=== PATIENT | male | born 1960 | race Caucasian/White ===

== ENCOUNTER 2021-02-18 12:35 | Outpatient (CLI) | payer MEDICARE, SELFPAY | END 2021-02-18 12:36 | disposition home or self-care (01) | LOC: ANHAUDIO 12:38 | PROVIDERS: PCP Student in an Organized Health Care Education/Training Program; Visit Provider Student in an Organized Health Care Education/Training Program | DX: H90.3 Sensorineural hearing loss, bilateral (principal) | CPT/HCPCS: 92557; 92567 ==

== ENCOUNTER 2021-06-19 09:33 | Outpatient (CLI) | payer MEDICARE, SELFPAY ==
--- NOTE | ~2021-06-19 | MR_ITS ---
EXAMINATION: MR lumbar spine wo con DATE: 06/19/2021 10:23 INDICATION: Low back pain TECHNIQUE: Magnetic resonance imaging (MRI) of the lumbar spine was performed without intravenous con trast. Sequences included sagittal T2-weighted FSE, sagittal T2-weighted FS FSE, sagittal T1-weighted FSE, and axial T2-weighted FSE. COMPARISON: 01/08/2017 FINDINGS: Alignment is normal. Unchanged 20% anterior vertebral body height loss at L1 and 20% anterior and gloria tral vertebral body height loss at L2. Small Schmorl's node along the inferior endplate of T12. Large T1 hyperintense L3 hemangioma. Marrow signal is otherwise normal. The discs are normal with normal h eight and signal. 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 The conus medullaris terminates at L1. There is normal signal in the caudal spinal cord. Unchanged small region of scarring the subcutaneous tissues posterior to the L2-L3 interspinous space likely related to a p rior intrathecal pain pump. Paravertebral soft tissues are otherwise unremarkable. The following disc levels are specifically discussed: T12-L1: Small left subarticular zone disc protrusion. There is mild bilateral facet joint osteoarthri tis. There is minimal bilateral neural foraminal stenosis. There is no central canal stenosis. L1-L2: The disc does not extend beyond the endplate margin. There is hypertrophy of the ligamentum fl avum. There is mild bilateral facet joint osteoarthritis. There is moderate left and mild to moderate right neural foraminal stenosis. There is mild central canal stenosis. L2-L3: The disc does not extend beyond the endplate margin. There is hypertrophy of the ligamentum fl avum. There is mild to moderate bilateral facet joint osteoarthritis. There is moderate left and mild to moderate right neural foraminal stenosis. There is mild to moderate central canal stenosis. L3-L4: Disc is mildly bulging. There is hypertrophy of the ligamentum flavum. There is mild to modera te bilateral facet joint osteoarthritis. There is moderate bilateral neural foraminal stenosis. There is moderate central canal stenosis. L4-L5: Disc is mildly bulging. There is hypertrophy of the ligamentum flavum. There is mild to modera te bilateral facet joint osteoarthritis. There is moderate bilateral neural foraminal stenosis. There is mild central canal stenosis. L5-S1: Disc is mildly bulging. There is mild to moderate bilateral facet joint osteoarthritis. There is mild right and mild to moderate left neural foraminal stenosis. There is mild central canal stenos is. IMPRESSION: 1. 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 2. Unchanged chronic mild L1 and L2 compression fractures. Reviewed, dictated and finalized at location A. N AND REGIONAL PLANNER IMPRESSION: 1. No significant interval change in mild to moderate lumbar spondylosis superi mposed over congenitally cysts all mid lumbar central canal. 2. Unchanged chronic mild L1 and L2 compression fractures.
== END 2021-06-19 09:34 ==
LOC: MICIMG 09:34
PROVIDERS: PCP Student in an Organized Health Care Education/Training Program; Visit Provider Nurse Practitioner Family
DX: M54.59 Other low back pain (principal); M47.816 Spondylosis without myelopathy or radiculopathy, lumbar region; G96.198 Other disorders of meninges, not elsewhere classified; M48.56XA Collapsed vertebra, not elsewhere classified, lumbar region, initial encounter for fracture
CPT/HCPCS: 72148

== ENCOUNTER 2021-09-06 11:39 | Emergency (ER) | payer MEDICARE, SELFPAY ==
--- NOTE | ~2021-09-06 | CT_ITS ---
EXAMINATION: CT abdomen pelvis wo con EXAM DATE: 09/06/2021 12:37 INDICATION: Right flank pain . Nausea and vomiting. TECHNIQUE: Spiral CT of the abdomen and pelvis was performed without contrast. Axial, coronal and sag ittal images were reviewed. The dose-length product (DLP) for this examination was 323.95 mGy-cm. T he exposure was tailored according to patient size (auto mA exposure control), and iterative reconstr uction (ASIR) was used as additional dose reduction technique. Comparison is made to prior examinatio n from 03/10/2015. FINDINGS: There is a 5 mm calcification appears to be in the distal aspect of the left ureter, 1 cm f rom the ureterovesicular junction, however there is no hydronephrosis at present. No calyceal stones. The prostate is unremarkable. The bladder is unremarkable. The liver, spleen, adrenal glands and pancreas are unremarkable. Gallbladder is unremarkable. No biliary obstruction. There is no retrop eritoneal or pelvic lymphadenopathy. There is mild scattered arteriosclerotic disease. The appendix is not positively visualized. There is no pericecal inflammatory change to suggest appe ndicitis. There are surgical changes from intact gastric bypass surgery. There is expected amount of colonic stool. No free intraperitoneal gas. The heart is normal in size. There are no pericar dial or pleural effusions. The lung bases are unremarkable. There are no osteoblastic or osteolytic lesions identified. Chronic mild to moderate compression fracture of L2 and mild at L1. There is a p ain management catheter and pump pack. IMPRESSION: 1. Pelvic calcification likely 5 mm left distal ureteral stone, but no hydronephrosis at present. Re portedly patient has contralateral pain. Recommend baseline KUB. 2. Gastric bypass. Reviewed, dictated and finalized at location B. TMENT MAINTENANCE TECHNICIAN IMPRESSION: 1. Pelvic calcification likely 5 mm left distal ureteral stone, but no hydrone phrosis at present. Reportedly patient has contralateral pain. Recommend baseli ne KUB. 2. Gastric bypass.
[2021-09-06 11:43] VITALS: BP 193/99; PULSE 60; RESP 20; TEMP 36.9; O2SAT 100
--- NOTE | 2021-09-06 12:02 | PC.NURSE ---
c/o low back pain and right flank pain. Pt reports chronic low back pain and wears a morphine pain pump. Reports this pain started yesterday. No N/V does reports some diarrhea. Denies any pain with urination
[2021-09-06 12:04] LABS: Basophils Percent Auto 0.3 % (0.2-1.2); Eosinophils Percent Auto 0.2 % (0-4.4); Hematocrit 43.8 % (42.0-52.0); Immature Granulocyte Absolute 0.04 K/mm3 (0.00-0.031); Immature Granulocyte Percent A 0.4 % (0-0.5); Lymphocytes Absolute Auto 1.46 K/mm3 (0.9-3.2); Lymphocytes Percent Auto 14.8 % (18.3-44.2); Mean Corpuscular HGB Conc 34.2 g/dl (32-36); Mean Corpuscular Hemoglobin 29.6 pg (26-34); Mean Corpuscular Volume 86.4 fl (80-100); Mean Platelet Volume 9.5 fl (7.4-10.4); Monocytes Absolute Auto 0.9 K/mm3 (0.1-0.6); Monocytes Percent Auto 9.1 % (2.6-8.5); Neutrophils Absolute Auto 7.4 K/mm3 (1.3-6.7); Neutrophils Percent Auto 75.2 % (45.5-73.1); Platelet Count Result 221 k/mm3 (150-375); Red Blood Count 5.07 M/mm3 (4.6-6.20); Red Cell Distribution Width 16.7 % (11.5-14.5); White Blood Count 9.8 K/mm3 (4.5-10.0)
[2021-09-06 12:08] LABS: Add Urine Microscopic? YES; Appearance Urine Clear (Clear); Bilirubin Urine Negative (Negative); Blood Urine Negative (Negative); Color Urine Yellow (Yellow); Glucose Urine UA Negative (Negative); Ketones Urine 1+ mg/dL (Negative); Leukocyte Esterase Ur Negative LEU/UL (Negative); Mucus Urine Rare /lpf; Nitrate Urine Negative (Negative); Protein Urine 1+ mg/dL (Negative); Specific Grav Ur 1.014 (1.001-1.035); WBC Urine 0-3 /hpf
[2021-09-06 12:16] LABS: Alanine Aminotransferase 23 U/L (4-50); Albumin Level 4.6 g/dL (3.5-5.1); Alkaline Phosphatase 97 U/L (38-126); Anion Gap 13 mmol/L (8-16); Aspartate Amino Transferase 45 U/L (17-59); Bilirubin,Total 1.2 mg/dL (0.2-1.3); Blood Urea Nitrogen 7 mg/dL (9-20); Calcium 9.4 mg/dL (8.4-10.2); Carbon Dioxide 12 mmol/L (22-30); Chloride 114 mmol/L (98-107); Estimated CRCL calculation 78 ml/min; Estimated Glomerular Filt Rate > 60; Glucose 128 mg/dL (65-110); Potassium 3.4 mmol/L (3.4-5.0); Sodium 139 mmol/L (137-145)
--- NOTE | 2021-09-06 12:26 | ED.BACK ---
HPI - Back Pain/Injury General Chief Complaint: Back Pain/Injury Stated Complaint: back pain Time Seen by Provider: 09/06/21 12:10 Source: patient Mode of arrival: ambulatory Limitations: no limitations History of Present Illness HPI Narrative: Patient is a 61-year-old male complaining of right flank pain, 6 out of 10, sharp, nonradiating, accompanied by dark urine started 2 days ago. Patient states that he has a history of kidney stones. Patient denies any chest pain, shortness of breath, abdominal pain, nausea, vomiting, diarrhea, fever or chills. Related Data Allergies Allergy/AdvReac Type Severity Reaction Status Date / Time No Known Allergies Allergy Unverified 04/15/16 20:55 Review of Systems Review of Systems: All systems reviewed & are unremarkable except as noted in HPI and below Constitutional: Constitutional: Denies body ache(s), Denies chills, Denies excessive sweating, Denies fatigue, Denies fever(s), Denies headache(s), Denies lethargy, Denies malaise, Denies weakness and Denies weight loss Eyes: Eyes: Denies blurry vision, Denies change in vision and Denies loss of vision ENT: Denies dizziness, Denies ear discharge, Denies headache(s), Denies lip swelling, Denies epistaxis, Denies nasal congestion, Denies neck pain, Denies throat swelling and Denies tongue swelling Cardiovascular: Cardiovascular: Denies chest pain, Denies chest pain at rest, Denies chest pain with activity, Denies diaphoresis, Denies rapid heart rate, Denies edema, Denies irregular heart rhythm, Denies lightheadedness, Denies palpitations, Denies dyspnea and Denies dyspnea on exertion Respiratory: Respiratory: Denies chest congestion, Denies cough, Denies hemoptysis, Denies dyspnea and Denies dyspnea on exertion Gastrointestinal: Gastrointestinal: Denies abdominal pain, Denies melena, Denies hematochezia, Denies diarrhea, Denies nausea, Denies vomiting and Denies hematemesis Musculoskeletal: Musculoskeletal: Denies abnormal gait, Denies deformity, Denies joint swelling, Denies limited range of motion, Denies neck pain and Denies numbness Neurologic: Denies Abnormal speech present, Denies abnormal gait, Denies confusion, Denies dizziness, Denies headache(s), Denies focal weakness, Denies loss of vision, Denies numbness, Denies Other visual disturbances, Denies Sensory deficit (Neuro) and Denies weakness Psychiatric: Psychiatric: Denies confusion, Denies depression, Denies auditory hallucinations, Denies homicidal ideation and Denies suicidal ideation Endocrine: Endocrine: Denies cold intolerance, Denies excessive sweating, Denies fatigue, Denies heat intolerance and Denies palpitations Hematologic/Lymphatic: Hematologic/Lymphatic: Denies easy bleeding and Denies easy bruising Allergic/Immunologic: Allergic/Immunologic: Denies lip swelling, Denies throat swelling and Denies tongue swelling PMFSH Past Medical History Medical History History of anxiety History of depression History of sleep apnea Surgical History Surgical History History of appendectomy History of gastric bypass History of tonsillectomy Family History Family History Father Family history of emphysema, Onset Age: 40 Other Family history of arthritis Social History Social History Smoking status: Never smoker Alcohol intake: never Substance use type: marijuana Exam Const: General: cooperative, healthy appearing, comfortable, no acute distress, well developed, alert and awake; No confusion Orientation/consciousness: oriented to person, oriented to place, oriented to time, patient oriented x3 and No confusion Limitations: no limitations HENMT: Head: normal to inspection, normocephalic and atraumatic Ears: hearing grossly normal lauryn
[2021-09-06] MEDS: SODIUM CHLORIDE 0.9% IV 1,000 ML 999 ML IV CONT (12:41)
[2021-09-06] MEDS: KETOROLAC 30 MG/ML VIAL (*BKC) IV PUSH (13:14)
[2021-09-06] MEDS: LORazepam INJ (*CRX) 2 MG/ML VIAL 1 MG IV PUSH (13:15)
[2021-09-06] MEDS: PROMETHAZINE HCL 25 MG/ML AMPUL 12.5 MG IV PUSH (13:26)
[2021-09-06] MEDS: SODIUM CHLORIDE 0.9% IV 50 ML (13:29)
[2021-09-06 15:19] VITALS: BP 186/97; PULSE 51; RESP 16; O2SAT 96
== END 2021-09-06 15:45 | disposition home or self-care (01) ==
PROVIDERS: Emergency Medicine; Emergency Provider Emergency Medicine; PCP Student in an Organized Health Care Education/Training Program
DX: N20.1 Calculus of ureter (principal); Z87.442 Personal history of urinary calculi; G47.30 Sleep apnea, unspecified; Z98.84 Bariatric surgery status
CPT/HCPCS: 36415; 74176; 80053; 81001; 85025; 96361; 96374; 96375; 99284; J1885; J2060; J2550; J7030

== ENCOUNTER 2021-09-25 20:25 | Observation (INO) | payer MEDICARE, SELFPAY ==
--- NOTE | ~2021-09-25 | XR_ITS ---
EXAMINATION: XR fluoroscopy no charge EXAM DATE: 09/26/2021 14:23 INDICATION: Left-sided stone extraction. TECHNIQUE: Fluoroscopy used during XR fluoroscopy no charge performed by Dr. Gama Rocha MD. Radiologist was not present for the imaging or procedure. Total fluoroscopic time of 8 seconds. Th e DAP for this procedure was 0.09 to mGym2. A total of 4 images sent to PACS from the exam. FINDINGS: Left ureter was cannulated and reportedly stone extracted. Correlate with procedure note. IMPRESSION: Fluoroscopy used during left ureteral stone extraction. Reviewed, dictated and finalized at location B. HICS SOFTWARE ENGINEER
--- NOTE | ~2021-09-25 | CT_ITS ---
EXAMINATION: CT abdomen pelvis wo con DATE: 09/25/2021 21:00 INDICATION: Evaluate kidney stones. Left flank pain. TECHNIQUE: Computed tomography (CT) of the abdomen and pelvis was performed without intravenous contr ast. The dose-length product was 356.92 mGy-cm. Automated exposure control and iterative reconstructi on technique were employed. COMPARISON: CT dated 09/06/2021. FINDINGS: Lung bases are unremarkable. Heart size is normal. No significant pleural or pericardial ef fusion. Status post gastric bypass surgery. The liver, spleen, pancreas, adrenal glands and kidneys a re unremarkable. There are accessory splenules at adjacent to the spleen. Gallbladder is present. Non obstructive bowel gas pattern. There is a distal left ureteral stone measuring 5 mm. No significant h ydronephrosis. Bladder is decompressed. There is a pain management pump in the left mid abdomen anter iorly. Chronic compression deformities of L1 and L2. IMPRESSION: 1. Stable position to distal left ureteral stone just proximal to the UVJ measuring 5 mm. No signific ant hydronephrosis. Reviewed, dictated and finalized at location A. ER TREATING TANK OPERATOR IMPRESSION: 1. Stable position to distal left ureteral stone just proximal to the UVJ measu ring 5 mm. No significant hydronephrosis.
[2021-09-25 20:25] VITALS: BP 172/94; PULSE 77; RESP 18; TEMP 36.8; O2SAT 100
[2021-09-25 20:39] VITALS: BP 147/88; PULSE 66; RESP 18; O2SAT 99
--- NOTE | 2021-09-25 20:50 | ED.BACK ---
HPI - Back Pain/Injury General Chief Complaint: Back Pain/Injury Stated Complaint: lt flank pain, hx kidney stone Time Seen by Provider: 09/25/21 20:29 History of Present Illness HPI Narrative: 61-year-old male with history of chronic back pain, presents to emergency room with acute on chronic left-sided back pain. Patient states pain has been present for 3 days associated with decreased urination, dysuria, nausea vomiting. Patient has a history of kidney stones, states pain feels similar. Patient reports suffering a fall back in 1999, which led him to have a pain pump for nearly 20 years. States pain pump was recently just removed. Denies recent injury or trauma. Related Data Allergies Allergy/AdvReac Type Severity Reaction Status Date / Time No Known Allergies Allergy Unverified 04/15/16 20:55 Review of Systems Review of Systems: CONSTITUTIONAL: Denies fever, chills, or sweats. EYES: Denies visual changes, redness, or discharge. ENT: Denies rhinorrhea, congestion, sore throat, or otalgia. CARDIOVASCULAR: Denies chest pain, palpitations, or edema. RESPIRATORY: Denies cough or dyspnea. GASTROINTESTINAL: Denies abdominal pain. Reports nausea vomiting, diarrhea. denies constipation GENITOURINARY: Reports dysuria, urinary retention. SKIN: Denies rash or itching. MUSCULOSKELETAL: Denies back pain, joint pain, or myalgia. NEUROLOGIC: Denies headache, numbness, dizziness, or weakness. PSYCHIATRIC: Denies anxiety or depression. PMFSH Past Medical History Medical History History of anxiety History of depression History of sleep apnea Surgical History Surgical History History of appendectomy History of gastric bypass History of tonsillectomy Family History Family History Father Family history of emphysema, Onset Age: 40 Other Family history of arthritis Social History Social History Smoking status: Never smoker Alcohol intake: never Substance use type: marijuana Exam Narrative: GENERAL: Well-appearing, well-nourished, and in no acute distress. HEAD: Normocephalic, atraumatic. EYES: PERRLA and EOMI. ENT: Nares clear, no rhinorrhea or epistaxis. Mucous membranes moist. NECK: Supple. No adenopathy or masses. No carotid bruits or JVD CHEST: Clear to auscultation. No respiratory distress. No wheezes rales or rhonchi HEART: Regular rate and rhythm. No murmur heard. Normal peripheral pulses. ABDOMEN: Soft, nontender, nondistended, normal active bowel sounds. Left CVA tenderness EXTREMITIES: Normal range of motion. No edema. SKIN: Warm, dry, no rash. NEURO: No focal deficits. Alert and oriented x3. PSYCH: Normal mood and affect. Course Course Emergency Course: IV line established. 1 L of normal saline, 4 mg of Zofran, 30 mg of Toradol, 4 mg of morphine given for pain relief. Patient has still not voided. Second liter of normal saline administered. Following second liter of normal saline, patient has voided 200 cc. Still complains of significant amount of pain in the left flank. 4 milligrams of morphine given. 2330: Spoke to Dr. Rocha, will consult patient in am. Recommends hospitalization. Vital Signs Vital signs: Vital Signs Temperature 36.8 C 09/25/21 20:25 Pulse Rate 77 09/25/21 20:25 Respiratory Rate 18 09/25/21 20:25 Blood Pressure 172/94 H 09/25/21 20:25 Pulse Oximetry 100 09/25/21 20:25 Temperature 36.8 C 09/25/21 20:25 Pulse Rate 60 09/25/21 23:30 Respiratory Rate 16 09/25/21 23:30 Blood Pressure 168/90 H 09/25/21 23:30 Pulse Oximetry 98 09/25/21 23:30 MDM - Back Pain/Injury MDM Narrative Medical decision making narrative: CT scan shows a 5 mm stone on proximal to the UVJ. CBC is unremarkable. 2 L of normal saline, 8
[2021-09-25] MEDS: ONDANSETRON INJ 4 MG/2 ML VIAL IV PUSH (21:11)
[2021-09-25] MEDS: SODIUM CHLORIDE 0.9% IV 1,000 ML 999 ML IV CONT ×2 (21:11→22:43)
[2021-09-25] MEDS: KETOROLAC 30 MG/ML VIAL (*BKC) IV PUSH (21:11)
[2021-09-25 21:20] LABS: Basophils Percent Auto 0.2 % (0.2-1.2); Hematocrit 44.3 % (42.0-52.0); Immature Granulocyte Absolute 0.01 K/mm3 (0.00-0.031); Immature Granulocyte Percent A 0.2 % (0-0.5); Lymphocytes Absolute Auto 0.74 K/mm3 (0.9-3.2); Lymphocytes Percent Auto 13.9 % (18.3-44.2); Mean Corpuscular HGB Conc 33.9 g/dl (32-36); Mean Corpuscular Hemoglobin 30.3 pg (26-34); Mean Corpuscular Volume 89.5 fl (80-100); Mean Platelet Volume 10.5 fl (7.4-10.4); Monocytes Absolute Auto 0.4 K/mm3 (0.1-0.6); Monocytes Percent Auto 7.9 % (2.6-8.5); Neutrophils Absolute Auto 4.2 K/mm3 (1.3-6.7); Neutrophils Percent Auto 77.8 % (45.5-73.1); Platelet Count Result 154 k/mm3 (150-375); Red Blood Count 4.95 M/mm3 (4.6-6.20); Red Cell Distribution Width 15.3 % (11.5-14.5); White Blood Count 5.3 K/mm3 (4.5-10.0)
[2021-09-25 21:23] LABS: Alanine Aminotransferase 20 U/L (4-50); Albumin Level 4.7 g/dL (3.5-5.1); Alkaline Phosphatase 104 U/L (38-126); Anion Gap 11 mmol/L (8-16); Aspartate Amino Transferase 34 U/L (17-59); Bilirubin,Total 1.1 mg/dL (0.2-1.3); Blood Urea Nitrogen 6 mg/dL (9-20); Calcium 9.4 mg/dL (8.4-10.2); Carbon Dioxide 19 mmol/L (22-30); Chloride 110 mmol/L (98-107); Estimated CRCL calculation 87 ml/min; Estimated Glomerular Filt Rate > 60; Glucose 129 mg/dL (65-110); Potassium 3.7 mmol/L (3.4-5.0); Sodium 140 mmol/L (137-145)
[2021-09-25 21:29] LABS: Mucus Urine Few /lpf; WBC Urine 0-3 /hpf
[2021-09-25 21:45] LABS: Appearance Urine Clear (Clear); Bilirubin Urine 1+ (Negative); Blood Urine Negative (Negative); Color Urine Yellow (Yellow); Glucose Urine UA Negative (Negative); Ketones Urine 2+ mg/dL (Negative); Leukocyte Esterase Ur Negative LEU/UL (Negative); Nitrate Urine Negative (Negative); Protein Urine 1+ mg/dL (Negative); Specific Grav Ur 1.015 (1.001-1.035); pH Urine >=9.0 (5.0-9.0)
[2021-09-25 21:46] LABS: Add Urine Microscopic? YES
[2021-09-25 22:00] VITALS: BP 163/79; PULSE 60; RESP 16; O2SAT 98
[2021-09-25] MEDS: MORPHINE SULFATE (*CRX) 4 MG/ML INJ IV PUSH (22:22)
[2021-09-25 23:30] VITALS: BP 168/90; PULSE 60; RESP 16; O2SAT 98
[2021-09-26] VITALS (19 sets, daily range): BP systolic 157–217; BP diastolic 74–111; PULSE 50–68; RESP 14–25; TEMP 36.1–37.1; O2SAT 96–100; BMI 27.3
--- NOTE | 2021-09-26 00:15 | PC.NURSE ---
Patient had declined morphine earlier and requested fentanyl. States he has been able to tolerate 120mcg of fentanyl in the past. [facility] FRANK made aware. No changes to order were made. Patient updated. Requested Morphine.
[2021-09-26] MEDS: MORPHINE SULFATE (*CRX) 4 MG/ML INJ IV PUSH (00:20)
--- NOTE | 2021-09-26 00:31 | PM.IMHP ---
H&P: HPI History of Present Illness Date/Time: 09/26/21 00:31 Chief Complaint: Flank pain Narrative: THIS IS A 61-YEAR-OLD MALE WITH PAST MEDICAL HISTORY SIGNIFICANT FOR FALL IN TO [facility] WITH BACK TRAUMA STATUS POST PAIN PUMP. According to patient the pump was just refilled. He presented to the emergency room today due to left flank pain patient had another visit to the emergency room on September 06 for same issue and he was found to have a distal left ureteral stone which was found again today on CT of abdomen and pelvis. Patient presented due to excruciating pain that has exacerbated his back pain as well. Has had some nausea but no vomiting has had diarrhea denies any fevers rigors chills however has had sweats and muscle pain and ache. Patient is been admitted for further evaluation ,management and treatment. Review of Systems Review of Systems: Left flank pain of 2 weeks duration ,nausea. Constitutional: Constitutional: Denies chills, Denies fatigue, Denies fever(s), Denies lethargy, Denies malaise, Denies night sweats and Denies weakness Eyes: Eyes: Denies change in vision ENT: Denies dysphagia, Denies vertigo, Denies dizziness, Denies nasal congestion, Denies nasal discharge, Denies nasal obstruction, Denies odynophagia and Denies disequilibrium Cardiovascular: Cardiovascular: Denies chest pain, Denies pedal edema, Denies claudication, Denies leg edema, Denies lightheadedness, Denies radiating jaw, neck or arm pain, Denies palpitations, Denies dyspnea on exertion, Denies orthopnea and Denies paroxysmal nocturnal dyspnea Respiratory: Respiratory: Denies cough and Denies dyspnea Gastrointestinal: Gastrointestinal: Denies dyspepsia, Denies heartburn, Reports diarrhea, Reports nausea and Reports vomiting Genitourinary: Genitourinary: Reports flank pain (R) Musculoskeletal: Musculoskeletal: Reports no additional musculoskeletal complaints, Reports as per HPI, Denies arthralgias and Denies muscle weakness Integumentary/Breasts: Skin/Breast: Denies rash Neurologic: Denies focal weakness and Denies Sensory deficit (Neuro) Psychiatric: Psychiatric: Reports no additional psychiatric complaints and Reports as per HPI Endocrine: Endocrine: Denies cold intolerance, Denies heat intolerance, Denies polyphagia, Denies polydipsia, Denies polyuria and Denies palpitations Hematologic/Lymphatic: Hematologic/Lymphatic: Reports no additional hematologic/lymphatic complaints and Reports as per HPI Allergic/Immunologic: Allergic/Immunologic: Reports no additional allergic/immunologic complaints and Reports as per HPI [facility] Past Medical History Medical History History of anxiety History of depression History of sleep apnea Surgical History Surgical History History of appendectomy History of gastric bypass History of tonsillectomy Family History Family History (Updated 09/26/21 @ 02:52 by Twyla Webster, RN) Father Family history of emphysema, Onset Age: 40 Mother Bone marrow disease Sibling Heart disease Liver failure Other Family history of arthritis Social History Social History Smoking status: Never smoker Alcohol intake: never Substance use type: marijuana Meds Home Medications and Allergies Home Medications Medication Instructions Recorded Confirmed Type Alive Men's 50 Plus Multivit 1 dose BYMOUTH DAILY 09/26/21 09/26/21 History buspirone 10 mg PO TID 09/26/21 09/26/21 History cholecalciferol (vitamin D3) 100 mcg PO DAILY 09/26/21 09/26/21 History [Vitamin D3] divalproex 250 mg PO TID 09/26/21 09/26/21 History ferrous sulfate 325 mg PO DAILY 09/26/21 09/26/21 History hydroxyzine HCl 50 mg PO QID 09/26/21 09/26/21 History sertraline 50 mg PO DAILY 09/26/21 09/26/21 History sertraline 100 mg PO DAILY 09/26/21 09/26/21 His
[2021-09-26 01:46] LABS: SARS-CoV-2 RNA PCR Negative
[2021-09-26] MEDS: hydrALAZINE HCL 20 MG/ML VIAL 10 MG IV PUSH (02:11)
--- NOTE | 2021-09-26 02:13 | PC.NURSE ---
Spoke to Dr. Locke at this time to add pain, nausea meds and maintenance fluids.
--- NOTE | 2021-09-26 02:30 | ADMGEN ---
This patient, Jose Maxwell, was admitted to Medical Room 341-01. Patient/family oriented to hospital policies and general routines including ID bracelet, bed and alarms, visiting hours, pain management, procedures, bathroom and other care routines, personal items, smoking policy, room service/diet, and visiting hours. Information on how to activate the Rapid Response Team has been discussed. Patient/Family are encouraged to report perceived risks to care and to ask questions if they do not understand what they are told or what they should do.
[2021-09-26] MEDS: DEXTROSE 5%/0.45% SOD CHL 1,000 ML 100 ML IV CONT (02:39)
[2021-09-26] MEDS: HYDROmorphone HCL INJ (*CRX) 1 MG/ML SYR IV PUSH ×4 (03:32→12:14)
--- NOTE | 2021-09-26 07:05 | WPDURCON ---
Assessment and Plan Assessment and plan (1) Left ureteral stone: Code(s): N20.1 - Calculus of ureter Status: Acute Assessment and Plan: Cystoscopy, left ureteroscopy with stone extraction, possible laser lithotripsy, possible retrograde pyelogram and possible left ureteral stent placement. Urology Consult Note HPI Date Seen: 09/26/21 Requesting Physician: Criselda Locke MD Primary Care Provider: Ayan See, DO Consult Narrative Narrative: Jose Maxwell is a 61 year old male who was previously unknown to me until about 3 weeks ago when he was referred with a 6 mm left distal ureteral calculus. He opted to try passing it spontaneously and I did not hear from him until last night when he was in the ER with intractable pain from this same stone. He has had no fevers chills days or gross hematuria. He does report some nausea. He is admitted for pain management and schedule endoscopic stone extraction. Review of Systems Cardiovascular: Cardiovascular: Denies chest pain, Denies lightheadedness, Denies palpitations and Denies dyspnea Respiratory: Respiratory: Denies dyspnea Gastrointestinal: Gastrointestinal: Denies diarrhea, Denies nausea and Denies vomiting Genitourinary: Genitourinary: Denies hematuria and Denies dysuria Endocrine: Endocrine: Denies palpitations PMFSH Past Medical History Medical History History of anxiety History of depression History of sleep apnea Surgical History Surgical History History of appendectomy History of gastric bypass History of tonsillectomy Family History Family History Father Family history of emphysema, Onset Age: 40 Mother Bone marrow disease Sibling Heart disease Liver failure Other Family history of arthritis Social History Social History Smoking status: Never smoker Alcohol intake: never Substance use: current Substance use type: marijuana Other substance usage details: medicinal marijuana Last use: couple days ago Spiritual care concerns: No Meds Home Medications and Allergies Home Medications Medication Instructions Recorded Confirmed Type Alive Men's 50 Plus Multivit 1 dose BYMOUTH DAILY 09/26/21 09/26/21 History buspirone 10 mg PO TID 09/26/21 09/26/21 History cholecalciferol (vitamin D3) 100 mcg PO DAILY 09/26/21 09/26/21 History [Vitamin D3] divalproex 250 mg PO TID 09/26/21 09/26/21 History ferrous sulfate 325 mg PO DAILY 09/26/21 09/26/21 History hydroxyzine HCl 50 mg PO QID 09/26/21 09/26/21 History sertraline 50 mg PO DAILY 09/26/21 09/26/21 History sertraline 100 mg PO DAILY 09/26/21 09/26/21 History tizanidine 2 mg PO TID 09/26/21 09/26/21 History trazodone 100 mg PO HS 09/26/21 09/26/21 History Allergies Allergy/AdvReac Type Severity Reaction Status Date / Time No Known Allergies Allergy Verified 09/26/21 02:45 Vital Signs Vital Signs - 24 hr 09/25/21 20:25 09/25/21 20:39 09/25/21 22:00 Temperature 98.2 F Pulse Rate 77 66 60 Respiratory Rate 18 18 16 Blood Pressure 172/94 H 147/88 H 163/79 H Pulse Oximetry 100 99 98 09/25/21 23:30 09/26/21 01:02 09/26/21 02:10 Temperature Pulse Rate 60 61 61 Respiratory Rate 16 25 H 20 Blood Pressure 168/90 H 178/90 H 185/92 H Pulse Oximetry 98 99 99 09/26/21 02:16 09/26/21 06:08 09/26/21 06:16 Temperature 97.9 F 97.9 F Pulse Rate 63 60 60 Respiratory Rate 16 18 18 Blood Pressure 167/93 H 169/86 H 169/86 H Pulse Oximetry 96 100 100 Exam Const: General: no acute distress Resp: Effort & Inspection: normal respiratory effort GI: Inspection: non-distended GI Palp: No abdominal tenderness and No Guarding due to palpation present (GI) Auscultation: normal bowel sounds R
--- NOTE | 2021-09-26 07:18 | WPDHPUPDATE1 ---
History and Physical Update Update Date/Time: 09/26/21 07:18 History and Physical has been reviewed, including an updated exam of the patient. There are NO changes in the patient's condition. Risks, benefits, and alternatives have been discussed and questions answered. Patient agrees to proceed with procedure.
[2021-09-26] MEDS: hydrOXYzine HCL 25 MG TABLET 50 MG PO ×2 (09:26→16:43)
[2021-09-26] MEDS: busPIRone HCL 10 MG TABLET PO ×2 (09:26→16:39)
[2021-09-26] MEDS: TIZANIDINE HCL 2 MG TABLET PO ×2 (09:28→16:38)
[2021-09-26] MEDS: DIVALPROEX SODIUM ER 250 MG TAB.24H PO ×2 (09:30→16:39)
[2021-09-26] MEDS: HYDROcodone/acetaminophen (*CRX) 5-325 MG TABLET 1 TAB PO ×2 (11:30→16:46)
[2021-09-26] MEDS: CALCIUM CARBONATE (TUMS) 500 MG (200 MG ELEMENTAL) PO (12:14)
--- NOTE | 2021-09-26 13:09 | WPDANESEPPF ---
Anes - Initial Pre Proc Eval Procedure: Operation Date: 09/26/21 13:45 Proposed Procedures p Cystoscopy, Left Ureteroscopy, Left Retrograde Pyelogram, Left Stone Extraction, Left Stent Placement, - Gama Rocha MD s Possible Holmium Laser Procedure - Gama Rocha MD Date/Time: 09/26/21 13:09 Surgeon: DEMIAN Haley Pre Op Diagnosis: Uriolithiasis Patient Data Age: 61 Gender: M Height: 1.85 m Weight: 94 kg Last Vital Signs Temp 37.0 C 09/26/21 12:09 Pulse 65 09/26/21 12:09 Resp 18 09/26/21 12:09 BP 168/82 H 09/26/21 12:09 Pulse Ox 99 09/26/21 12:09 Allergies Allergy/AdvReac Type Severity Reaction Status Date / Time No Known Allergies Allergy Verified 09/26/21 02:45 Home Medications Medication Instructions Recorded Confirmed Type Alive Men's 50 Plus Multivit 1 dose BYMOUTH DAILY 09/26/21 09/26/21 History buspirone 10 mg PO TID 09/26/21 09/26/21 History cholecalciferol (vitamin D3) 100 mcg PO DAILY 09/26/21 09/26/21 History [Vitamin D3] divalproex 250 mg PO TID 09/26/21 09/26/21 History ferrous sulfate 325 mg PO DAILY 09/26/21 09/26/21 History hydroxyzine HCl 50 mg PO QID 09/26/21 09/26/21 History sertraline 50 mg PO DAILY 09/26/21 09/26/21 History sertraline 100 mg PO DAILY 09/26/21 09/26/21 History tizanidine 2 mg PO TID 09/26/21 09/26/21 History trazodone 100 mg PO HS 09/26/21 09/26/21 History Laboratory Tests 09/25/21 09/25/21 09/25/21 21:04 21:04 21:04 WBC 5.3 K/mm3 K/mm3 (4.5-10.0) RBC 4.95 M/mm3 M/mm3 (4.6-6.20) Hgb 15.0 g/dL g/dL (14.0-18.0) Hct 44.3 % % (42.0-52.0) MCV 89.5 fl fl (80-100) MCH 30.3 pg pg (26-34) MCHC 33.9 g/dl g/dl (32-36) RDW 15.3 % H % (11.5-14.5) Plt Count 154 k/mm3 k/mm3 (150-375) MPV 10.5 fl H fl (7.4-10.4) Immature Gran % (Auto) 0.2 % % (0-0.5) Neut % (Auto) 77.8 % H % (45.5-73.1) Lymph % (Auto) 13.9 % L % (18.3-44.2) [place] % (Auto) 7.9 % % (2.6-8.5) Eos % (Auto) 0.0 % % (0-4.4) Baso % (Auto) 0.2 % % (0.2-1.2) Lymph # (Auto) 0.74 K/mm3 L K/mm3 (0.9-3.2) [place] # (Auto) 0.4 K/mm3 K/mm3 (0.1-0.6) Eos # (Auto) 0.0 K/mm3 K/mm3 (0-0.3) Baso # (Auto) 0.0 K/mm3 K/mm3 (0.0-0.1) Abs Immat Gran (auto) 0.01 K/mm3 K/mm3 (0.00-0.031) Absolute Neuts (auto) 4.2 K/mm3 K/mm3 (1.3-6.7) Absolute Nucleated RBC 0.0 K/mm3 K/mm3 (0.0-0.012) Nucleated RBC % 0.0 % % (0.0-0.2) Sodium 140 mmol/L mmol/L (137-145) Potassium 3.7 mmol/L mmol/L (3.4-5.0) Chloride 110 mmol/L H mmol/L (98-107) Carbon Dioxide 19 mmol/L L mmol/L (22-30) Anion Gap 11 mmol/L mmol/L (8-16) BUN 6 mg/dL L mg/dL (9-20) Creatinine 0.90 mg/dL mg/dL (0.7-1.3) Estim Creat Clear Calc 87 ml/min ml/min Estimated GFR > 60 (59 - ) Glucose 129 mg/dL H mg/dL (65-110) Calcium 9.4 mg/dL mg/dL (8.4-10.2) Total Bilirubin 1.1 mg/dL mg/dL (0.2-1.3) AST 34 U/L U/L (17-59) ALT 20 U/L U/L (4-50) Alkaline Phosphatase 104 U/L U/L (38-126) Total Protein 8.0 g/dL g/dL (6.3-8.2) Albumin 4.7 g/dL g/dL (3.5-5.1) Urine Color Yellow (Yellow) Urine Appearance Clear (Clear) Urine pH >=9.0 H (5.0-9.0) Ur Specific [place] 1.015 (1.001-1.035) Urine Protein 1+ mg/dL H mg/dL (Negative) Urine Glucose (UA) Negative mg/dL mg/dL (Negative) Urine Ketones 2+ mg/dL H mg/dL (Negative) Ur Blood (Man) Negative (Negative) Urine Nitrate Negative (Negative) Urine Bilirubin 1+ H (Negative) Urine Urobilinogen 1.0 mg/dL mg/dL
[2021-09-26] MEDS: fentaNYL CITRATE INJ (*CRX) 100 MCG/2 ML VIAL 50 MCG IV PUSH ×2 (13:15→13:30)
[2021-09-26] MEDS: LACTATED RINGERS 1,000 ML 30 ML IV CONT ×2 (13:15→15:17)
[2021-09-26] MEDS: ceFAZolin 2 GM/D5W 50 ML 2 GM/50 ML BAG IVPB (14:05)
[2021-09-26] MEDS: LIDOCAINE HCL 2% GEL UROJET 10 ML PKG MUCOUS MEM (14:05)
--- NOTE | 2021-09-26 14:13 | W.PM.PROC2 ---
Procedure Note - Detailed Date of Procedure 09/26/21 Pre-op Diagnosis Left ureteral stone Post-op Diagnosis Same Procedure Performed Cystoscopy, left ureteroscopy with stone extraction Surgeon Gama Rocha MD Anesthesia General Description of Procedure The patient was brought to the operative suite where he is prepped and draped in a routine sterile fashion while in the dorsal lithotomy position after the uneventful induction of a general LMA anesthetic. A 19F rigid cystoscope was placed in the bladder. There are no urethral strictures. His prostatic urethra measures, approximately, 1.5cm with no median lobe enlargement. The bladder mucosa was endoscopically normal without hyperemia or neoplasm. There was a single, orthotopic ureteral orifice bilaterally. A 0.035 glidewire was advanced into the left renal pelvis under fluoroscopy. The distal ureter was dilated with an 8F/10F ureteral dilator. Ureteroscopy was undertaken with a short, tapered, semi-rigid ureteroscope and the stone was extracted with ease using a 1.9F [employer] disposable stone basket. Due to the ease of this manipulation I opted not to place a ureteral stent. The patient's bladder was emptied and was taken to the recovery room having tolerated this procedure well. Urine Output 450 Drains No Packing No Pathology None sent Complications No immediate complications Condition Stable Disposition PACU
[2021-09-26] MEDS: KETOROLAC 30 MG/ML VIAL (*BKC) IV PUSH (14:14)
--- NOTE | 2021-09-26 14:38 | SUR.PHASEI ---
PT AWAKE, C/O URGE TO URINATE. GAVE PT URINAL, PT WAS URINATING ALL OVER THE BED.
--- NOTE | 2021-09-26 14:43 | SUR.PHASEI ---
CALLED DR SILVA. FATUMA ZAMORA MAMMAL KEEPER COVERING PACU. BP 216/98, HR 59, NSR.SB WITH PVC OCCASIONAL. HYDRALAZINE 5MG IV ORDERED
[2021-09-26] MEDS: hydrALAZINE HCL 20 MG/ML VIAL 5 MG IV PUSH (14:46)
--- NOTE | 2021-09-26 14:48 | SUR.PHASEI ---
PT MOANING, C/O CRAMPING BECAUSE I NEED TO POOP . OFFERED BEDPAN, PT REFUSED
--- NOTE | 2021-09-26 14:53 | SUR.PHASEI ---
PT NOW ON BEDPAN
[2021-09-26] MEDS: fentaNYL CITRATE INJ (*CRX) 100 MCG/2 ML VIAL 25 MCG IV PUSH ×8 (15:01→15:50)
--- NOTE | 2021-09-26 15:16 | SUR.PHASEI ---
CALLED FATUMA ZAMORA CRNA, COVERING PACU. BP 210/110, HR 65. LABETOLOL 10MG IV ORDERED
[2021-09-26] MEDS: LABETALOL HCL INJ 100 MG/20 ML VIAL 10 MG IV PUSH (15:24)
--- NOTE | 2021-09-26 15:25 | SUR.PHASEI ---
PT REMOVED FROM BEDPAN PER REQUEST. STATES CRAMPING TO LT LOWER ABDOMEN. I NEED TO POOP . PT ASSISTED TO LAY ON RT SIDE FOR COMFORT. BP REMAINS HIGH. PT MOANING
--- NOTE | 2021-09-26 15:33 | SUR.PHASEI ---
1530; FATUMA ZAMORA CROSSING GATEMAN AT BEDSIDE CHECKING ON PT. PT LESS MOANING NOW. BP 187/92, HR 60
--- NOTE | 2021-09-26 15:49 | SUR.PHASEI ---
PT NO LONGER MOANING IN PAIN. BP IMPROVING. REMAINS LAYING ON RT SIDE. PT ASKED CAN I JUST POOP IN THE BED . OFFERED PT BEDPAN, HE REFUSED. ASKED PT NOT TO HAVE BM IN BED AND TO ALLOW ME TO PLACE ON BEDPAN. PT REFUSED. PT ALERT AND ORIENTED
--- NOTE | 2021-09-26 16:01 | SUR.PHASEI ---
PT RELAXED AND CALM. STATES CRAMPING MUCH BETTER NOW.
--- NOTE | 2021-09-26 16:15 | PM.IMPN ---
Progress Note: A&P Additional Plan Assessment and plan (1) Urolithiasis: Qualifiers: Urinary calculus location: kidney and ureter Qualified Code(s): N20.2 - Calculus of kidney with calculus of ureter Code(s): N20.9 - Urinary calculus, unspecified Status: Acute Assessment and Plan: - Imaging showed Left hydronephrosis from 6 mm stone. - Urology consulted and took to OR today for scope and performed a stone removal without stenting. - IV fluids - Pain management - Continue to monitor (2) Kidney stone on left side: Code(s): N20.0 - Calculus of kidney Status: Acute Assessment and Plan: - As above (3) Acute left flank pain: Code(s): R10.9 - Unspecified abdominal pain Status: Acute Assessment and Plan: - Likely secondary to kidney stone - Pain control as needed. - Continue to monitor. (4) Nausea without vomiting: Code(s): R11.0 - Nausea Status: Acute Assessment and Plan: - Secondary to acute left sided Nephrolithiasis/Ureterolithiasis with Hydronephrosis. - CT abdomen and pelvis reviewed - PRN Anti-emetics (5) Chronic back pain: Code(s): M54.9 - Dorsalgia, unspecified; G89.29 - Other chronic pain Status: Acute Assessment and Plan: - Pain pump in place - Follow-up in outpatient setting Time Spent With Patient Time with patient: 15 - 25 minutes Subjective Date/time seen: 09/26/21 16:15 This pt. was examined at the bedside post procedure, Cystoscopy. He was not stented but instead according to the operative note, the stone was removed without complications. The pt. is currently comfortable and does not have any complaints. Review of Systems Review of Systems: A 12 point ROS was performed and is negative with exception of what is noted in HPI. All systems reviewed & are unremarkable except as noted in HPI and below Exam Const: General: comfortable and no acute distress; No in distress or uncomfortable HENMT: Mouth: Yes moist mucous membranes Eyes: Sclera: sclerae normal Neck: Neck: supple and no JVD Lymphatic: lymphadenopathy not noted Resp: Effort & Inspection: normal respiratory effort Auscultation: clear to auscultation bilaterally Cardio: Rate: regular rate Rhythm: regular rhythm GI: GI Palp: Yes Soft to palpation and Yes Tenderness to palpation present (GI) (Slight tenderness left flank.) Auscultation: normal bowel sounds Skin: General skin exam: normal color and no rashes or lesions noted Neuro: General: gait normal Cognition (Neuro): normal cognition Speech: normal speech Motor exam (neuro): 5/5 motor strength present throughout Extrem: General: normal to inspection Right upper extremity: normal to inspection Left upper extremity: normal to inspection Right lower extremity: normal to inspection Left lower extremity: normal to inspection Psych: Mental Status: mental status grossly normal Affect: normal affect Objective Data Vital Signs Vital Signs: Vital Signs - 24 hr 09/25/21 20:25 09/25/21 20:39 09/25/21 22:00 Temperature 98.2 F Pulse Rate 77 66 60 Respiratory Rate 18 18 16 Blood Pressure 172/94 H 147/88 H 163/79 H Pulse Oximetry 100 99 98 09/25/21 23:30 09/26/21 01:02 09/26/21 02:10 Temperature Pulse Rate 60 61 61 Respiratory Rate 16 25 H 20 Blood Pressure 168/90 H 178/90 H 185/92 H Pulse Oximetry 98 99 99 09/26/21 02:16 09/26/21 06:08 09/26/21 06:16 Temperature 97.9 F 97.9 F Pulse Rate 63 60 60 Respiratory Rate 16 18 18 Blood Pressure 167/93 H 169/86 H 169/86 H Pulse Oximetry 96 100 100 09/26/21 08:37 09/26/21 12:09 09/26/21 14:21 Temperature 98.7 F 98.6 F 97.2 F L Pulse Rate 62 65 51 L Respiratory Rate 18 18 22 H Blood Pressure 178/84 H 168/82 H 179/94 H Pulse Oximetry 98 99 98 09/26/21 14:35 09/26/21 14:50 09/26/21 14:58 Temperature Pulse Rate 68 66 Respiratory Rate 18 16 Blood Pressure 216/98 H 217/102 H Pulse Oximetry 100
--- NOTE | 2021-09-26 17:52 | PM.DS ---
DS: Admitting Diagnosis Discharge Date 09/26/21 Admitting Diagnosis Left sided Urolithiasis DS: Discharge Diagnosis Discharge Diagnosis (1) Left ureteral stone: Code(s): N20.1 - Calculus of ureter Status: Acute Assessment and Plan: - Pt. taken for Cystoscopy today and stone was removed without any stent placement. - Pt's post-operative course is asymptomatic and benign. - Discharging to home with orders of Dr. Rocha. (2) Urolithiasis: Qualifiers: Urinary calculus location: kidney and ureter Qualified Code(s): N20.2 - Calculus of kidney with calculus of ureter Code(s): N20.9 - Urinary calculus, unspecified Status: Acute Assessment and Plan: - Pt. taken for Cystoscopy today and stone was removed without any stent placement. - Pt's post-operative course is asymptomatic and benign. - Discharging to home with orders of Dr. Rocha. (3) Nausea without vomiting: Code(s): R11.0 - Nausea Status: Acute Assessment and Plan: - Secondary to acute left sided Nephrolithiasis/Ureterolithiasis with Hydronephrosis. - CT abdomen and pelvis reviewed - PRN Anti-emetics (4) Kidney stone on left side: Code(s): N20.0 - Calculus of kidney Status: Acute Assessment and Plan: - Pt. taken for Cystoscopy today and stone was removed without any stent placement. - Pt's post-operative course is asymptomatic and benign. - Discharging to home with orders of Dr. Rocha. DS: Summary Hospital Course Hospital Course: This 61 year old male patient with significant PMH of Chronic pain s/p pain pump placement, was admitted to the hospital after presenting to the ER with complaints of acute on chronic pain in the left flank in which a 6 mm kidney stone was found with associated Hydronephrosis. The pt. was evaluated by Dr. Rocha and taken to the OR for Cystoscopy today with stone removal as it was found to be easily obtainable. There was no stent placed in the ureter. After the procedure, the pt. was comfortable, able to tolerate po intake and had no complications. Discharge was initiated by Dr. Rocha and the pt. is stable to go home at this time. Time Spent with Patient Time attestation: Total time spent providing and/or coordinating discharge services: 20 minutes Exam Narrative: Const: General: comfortable and no acute distress; No in distress or uncomfortable HENMT: Mouth: Yes moist mucous membranes Eyes: Sclera: sclerae normal Neck: Neck: supple and no JVD Lymphatic: lymphadenopathy not noted Resp: Effort & Inspection: normal respiratory effort Auscultation: clear to auscultation bilaterally Cardio: Rate: regular rate Rhythm: regular rhythm GI: GI Palp: Yes Soft to palpation and Yes Tenderness to palpation present (GI) (Slight tenderness left flank.) Auscultation: normal bowel sounds Skin: General skin exam: normal color and no rashes or lesions noted Neuro: General: gait normal Cognition (Neuro): normal cognition Speech: normal speech Motor exam (neuro): 5/5 motor strength present throughout Extrem: General: normal to inspection Right upper extremity: normal to inspection Left upper extremity: normal to inspection Right lower extremity: normal to inspection Left lower extremity: normal to inspection Psych: Mental Status: mental status grossly normal Affect: normal affect DS: Data Data Completed and Pending Pending studies at discharge: Pending at discharge 09/26/21 14:39 Surgical [PTH] Routine Labs on day of discharge: Labs from last 24 hours 09/26/21 09/25/21 09/25/21 00:35 21:04 21:04 WBC 5.3 RBC 4.95 Hgb 15.0 Hct 44.3 MCV 89.5 MCH 30.3 MCHC 33.9 RDW 15.3 H Plt Count 154 MPV 10.5 H Immature Gran % (Auto) 0.2 Neut % (Auto) 77.8 H Lymph % (Auto) 13.9 L [place] % (Auto) 7.9 Eos % (Auto) 0.0 Baso % (Auto) 0.2 Lymph # (Auto) 0.74 L [place] # (Auto) 0.4 Eos # (Auto)
== END 2021-09-26 18:25 | disposition home health service (06) ==
LOC: ANHED 23:54 → ANH3MED 09-26 01:06
PROVIDERS: Urology; Admitting Provider Internal Medicine; Emergency Provider Nurse Practitioner Family; PCP Student in an Organized Health Care Education/Training Program; Visit Provider Nurse Practitioner Adult Health
PROC: (CPT 52352; principal; 2021-09-26 13:45)
DX: N13.2 Hydronephrosis with renal and ureteral calculous obstruction (principal); R11.0 Nausea; M54.9 Dorsalgia, unspecified; G89.29 Other chronic pain; F41.8 Other specified anxiety disorders; F12.90 Cannabis use, unspecified, uncomplicated; Z20.822 Contact with and (suspected) exposure to COVID-19
CPT/HCPCS: 52352; 36415; 74176; 80053; 81001; 82365; 85025; 88300; 96361; 96374; 96375; 96376; 99285; A9270; C1769; C9803; G0378; J0360; J0690; J1100; J1170; J1885; J2250; J2270; J2405; J2704; J3010; J7030; J7120; Q9966; U0003; U0005

== ENCOUNTER 2021-10-01 14:06 | Emergency (ER) | payer MEDICARE, SELFPAY ==
[2021-10-01] VITALS (10 sets, daily range): BP systolic 150–184; BP diastolic 88–121; PULSE 55–91; RESP 14–20; TEMP 36.6–36.9; O2SAT 97–100
--- NOTE | ~2021-10-01 | CT_ITS ---
EXAMINATION: CT brain wo con DATE: 10/01/2021 20:42 INDICATION: Weakness TECHNIQUE: Computed tomography (CT) of the head was performed without intravenous contrast. Sagittal and coronal reconstructions were performed. The mA was adjusted according to patient size. Iterative reconstruction technique was employed. The dose-length product was 605.33 mGy-cm. COMPARISON: head CT dated 03/13/2012 FINDINGS: Small focus of encephalomalacia at the right occipital lobe consistent with chronic infarct which is new since the prior study. No acute intracranial hemorrhage, acute infarction or abnormal extra axial fluid collection. Ventricles are normal and symmetric. No mass/mass effect. Mild mucoperiosteal thic kening the bilateral ethmoid sinuses. The orbits and mastoid air cells are normal. IMPRESSION: 1. No acute intracranial process. 2. 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 Reviewed, dictated and finalized at location A. GE CREW MEMBER
--- NOTE | ~2021-10-01 | CT_ITS ---
EXAMINATION: CTA chest DATE: 10/01/2021 20:42 INDICATION: Upper back pain and weakness. TECHNIQUE: Computed tomographic angiography (CTA) of the chest was performed without and with 100 mL Omnipaque-350 intravenous contrast. Volume-rendered 3D-reconstructions of the aorta and large arterie s were constructed by the technologist on a separate workstation. Automated exposure control and iter ative reconstruction technique were employed. The dose-length product was 632.26 mGy-cm. COMPARISON: None. FINDINGS: Prominent pneumatocele in the anterior segment of the right upper lobe. No pneumonia, pulmonary edema , pleural effusion or pneumothorax. No pulmonary embolism. Heart size is normal. No pericardial effus ion. Mildly aneurysmal ascending thoracic aorta measuring up to 4.3 x 3.9 cm in maximal diameter. And no aortic dissection. No pathologically enlarged thoracic lymphadenopathy. Postoperative changes of gastric bypass procedure. Mild thoracic spondylosis. IMPRESSION: 1. 4.3 cm ascending thoracic aortic aneurysm. No dissection or other acute pulmonary disease. Reviewed, dictated and finalized at location A. [employer]OR [employer]ITY EDUCATION IMPRESSION: 1. 4.3 cm ascending thoracic aortic aneurysm. No dissection or other acute pulm onary disease.
--- NOTE | ~2021-10-01 | XR_ITS ---
EXAMINATION: XR chest 2V DATE: 10/01/2021 19:38 INDICATION: Weakness. Presyncopal episode. TECHNIQUE: frontal and lateral views of the chest were obtained. COMPARISON: Chest radiograph dated 07/05/[address] abdomen and pelvis dated 09/25/2021 FINDINGS: The lungs remain clear with no focal airspace opacities, pulmonary edema, pleural effusion or pneumot horax. The cardiomediastinal silhouette is normal. Chronic L1 compression fracture. IMPRESSION: 1. No acute cardiopulmonary disease. Reviewed, dictated and finalized at location A. ROL CLERK AUDITING
--- NOTE | 2021-10-01 14:16 | ECG_ITS ---
Measurements Intervals [place] Rate: 72 P: 31 HI: 123 QRS: -41 QRSD: 94 T: 0 QT: 344 QTc: 377 Interpretive Statements SINUS RHYTHM WITH PREMATURE ATRIAL CONTRACTIONS LEFT AXIS DEVIATION [QRS AXIS < -30] NONSPECIFIC T-WAVE ABNORMALITY BORDERLINE ECG NO PREVIOUS ECG AVAILABLE FOR COMPARISON Electronically Signed On 10-01-2021 14:57:25 DIRECTOR FUNERAL by Andres Washington M.D.
[2021-10-01 14:49] LABS: Basophils Percent Auto 0.3 % (0.2-1.2); Eosinophils Absolute Auto 0.2 K/mm3 (0-0.3); Eosinophils Percent Auto 1.7 % (0-4.4); Hematocrit 40.6 % (42.0-52.0); Hemoglobin 14.1 g/dL (14.0-18.0); Immature Granulocyte Absolute 0.03 K/mm3 (0.00-0.031); Immature Granulocyte Percent A 0.3 % (0-0.5); Lymphocytes Absolute Auto 1.63 K/mm3 (0.9-3.2); Mean Corpuscular HGB Conc 34.7 g/dl (32-36); Mean Corpuscular Hemoglobin 30.6 pg (26-34); Mean Corpuscular Volume 88.1 fl (80-100); Mean Platelet Volume 10.1 fl (7.4-10.4); Monocytes Absolute Auto 0.8 K/mm3 (0.1-0.6); Monocytes Percent Auto 8.7 % (2.6-8.5); Neutrophils Absolute Auto 6.4 K/mm3 (1.3-6.7); Platelet Count Result 218 k/mm3 (150-375); Red Blood Count 4.61 M/mm3 (4.6-6.20); Red Cell Distribution Width 15.3 % (11.5-14.5); White Blood Count 9.1 K/mm3 (4.5-10.0)
[2021-10-01 15:03] LABS: Alanine Aminotransferase 20 U/L (4-50); Albumin Level 4.4 g/dL (3.5-5.1); Alkaline Phosphatase 91 U/L (38-126); Anion Gap 9 mmol/L (8-16); Aspartate Amino Transferase 36 U/L (17-59); Blood Urea Nitrogen 17 mg/dL (9-20); Carbon Dioxide 19 mmol/L (22-30); Chloride 113 mmol/L (98-107); Estimated CRCL calculation 78 ml/min; Estimated Glomerular Filt Rate > 60; Glucose 111 mg/dL (65-110); Potassium 3.6 mmol/L (3.4-5.0); Sodium 141 mmol/L (137-145)
[2021-10-01 19:05] LABS: Add Urine Microscopic? YES; Appearance Urine Cloudy (Clear); Bilirubin Urine Negative (Negative); Blood Urine Negative (Negative); Color Urine Amber (Yellow); Glucose Urine UA Negative (Negative); Ketones Urine Trace mg/dL (Negative); Leukocyte Esterase Ur Negative LEU/UL (Negative); Mucus Urine Few /lpf; Nitrate Urine Negative (Negative); Protein Urine 1+ mg/dL (Negative); Specific Grav Ur 1.026 (1.001-1.035); WBC Urine 0-3 /hpf
--- NOTE | 2021-10-01 19:26 | PC.NURSE ---
Assumed care of pt at this time. Pt alert and upright on stretcher. Updated on POC.
--- NOTE | 2021-10-01 19:44 | ED.GENADULT ---
HPI - General Adult General Chief complaint: Weakness Stated complaint: shoulder pain Time Seen by Provider: 10/01/21 19:00 Source: patient and RN notes reviewed Mode of arrival: EMS Limitations: no limitations History of Present Illness HPI narrative: This is a 61 year old male with history of chronic pain, kidney stone s/p recent extraction, anxiety, PTSD who presents for evaluation of weakness. Patient was discharged from [facility] 5 days ago after a left ureteral stone extraction. Patient states he has not felt well since April but he has had increasing fatigue since discharge from hospital 5 days . He states he is fatigue with minimal activity. He reports having to lay down in order to change his grandson's diaper. He is also complaining of aching upper back pain that lasted minutes. He denies chest pain . He reports chronic sob and it has not worsened over past week. He has chronic back pain but he states it is his normal back pain. He denies chest pain, nausea, vomiting, headache, fever or chills. He became concerned when he had brief episode lasting seconds of room spinning . This then increased his anxiety. Related Data Home Medications Medication Instructions Recorded Confirmed Alive Men's 50 Plus Multivit 1 dose BYMOUTH DAILY 09/26/21 09/26/21 buspirone 10 mg PO TID 09/26/21 09/26/21 cholecalciferol (vitamin D3) 100 mcg PO DAILY 09/26/21 09/26/21 divalproex 250 mg PO TID 09/26/21 09/26/21 ferrous sulfate 325 mg PO DAILY 09/26/21 09/26/21 hydroxyzine HCl 50 mg PO QID 09/26/21 09/26/21 sertraline 50 mg PO DAILY 09/26/21 09/26/21 sertraline 100 mg PO DAILY 09/26/21 09/26/21 tizanidine 2 mg PO TID 09/26/21 09/26/21 trazodone 100 mg PO HS 09/26/21 09/26/21 Allergies Allergy/AdvReac Type Severity Reaction Status Date / Time No Known Allergies Allergy Verified 09/26/21 02:45 Review of Systems Review of Systems: All systems reviewed & are unremarkable except as noted in HPI and below Constitutional: Constitutional: Denies chills, Reports fatigue and Denies fever(s) Eyes: Eyes: Denies change in vision ENT: Reports vertigo, Denies nasal congestion and Denies sore throat Cardiovascular: Cardiovascular: Denies chest pain Respiratory: Respiratory: Denies cough and Reports dyspnea Gastrointestinal: Gastrointestinal: Denies abdominal pain, Denies diarrhea, Denies nausea and Denies vomiting Musculoskeletal: Musculoskeletal: Reports back pain (chronic) [facility] Past Medical History Medical History (Updated 10/02/21 @ 00:00 by Background Daemon) Chronic back pain History of anxiety History of depression History of sleep apnea Kidney stone Surgical History Surgical History History of appendectomy History of gastric bypass History of tonsillectomy Family History Family History Father Family history of emphysema, Onset Age: 40 Mother Bone marrow disease Sibling Heart disease Liver failure Other Family history of arthritis Social History Social History Smoking status: Never smoker Alcohol intake: never Substance use: current Substance use type: marijuana Other substance usage details: medicinal marijuana Last use: couple days ago Spiritual care concerns: No Exam Const: General: no acute distress and alert Orientation/consciousness: patient oriented x3 HENMT: Head: normocephalic Ears: TM's normal bilaterally Face and sinus: normal facial exam, sinuses nontender and face symmetric Mouth: Yes Normal oral and palatal mucosa present, Yes lip normal, Yes oropharynx normal and Yes moist mucous membranes Throat: tonsils normal and uvula midline Eyes: Pupils: Equal, round and reactive pupils present EOM: EOMs intact bilaterally Chest: Chest palpation & inspection: iam
[2021-10-01 19:59] LABS: Magnesium 2.4 mg/dL (1.6-2.3)
[2021-10-01 20:01] LABS: INR 1.3; Lactic Acid Reflex 0.8 mmol/L (0.7-2.1); Prothrombin Time 15.3 Seconds (11.1-14.7)
[2021-10-01 20:08] LABS: D Dimer 0.27 ug/mL (<0.48)
[2021-10-01 20:11] LABS: Troponin I < 0.012 ng/mL (0.000-0.034)
--- NOTE | 2021-10-01 20:22 | PC.NURSE ---
Pt to CT at this time.
[2021-10-01] MEDS: hydrALAZINE HCL 20 MG/ML VIAL 10 MG IV PUSH (21:38)
== END 2021-10-01 22:35 | disposition home or self-care (01) ==
PROVIDERS: Emergency Medicine; Emergency Provider General Practice; PCP Student in an Organized Health Care Education/Training Program
DX: I71.2 Thoracic aortic aneurysm, without rupture (principal); I10 Essential (primary) hypertension; R53.83 Other fatigue; F41.9 Anxiety disorder, unspecified; F43.12 Post-traumatic stress disorder, chronic; F32.A Depression, unspecified; G47.30 Sleep apnea, unspecified; Z87.442 Personal history of urinary calculi; Z98.84 Bariatric surgery status; R94.31 Abnormal electrocardiogram [ECG] [EKG]; R06.02 Shortness of breath
CPT/HCPCS: 36415; 70450; 71046; 71275; 80053; 81001; 83605; 83735; 84443; 84484; 85025; 85380; 85610; 85730; 93005; 96374; 99284; J0360; Q9967

== ENCOUNTER 2021-11-09 17:41 | Emergency (ER) | payer MEDICARE, SELFPAY ==
--- NOTE | ~2021-11-09 | CT_ITS ---
EXAMINATION: CT abdomen pelvis wo con DATE: 11/09/2021 18:24 INDICATION: L flank pain hx of ureteral stone TECHNIQUE: Computed tomography (CT) of the abdomen and pelvis was performed without intravenous contr ast. Automated exposure control and iterative reconstruction technique were employed. The dose-length product was 662.20 mGy-cm. COMPARISON: 09/25/2021. FINDINGS: Lower thorax: Unremarkable. Liver: Normal. Biliary/Gallbladder: Gallbladder is normal. No bile duct dilation. Spleen: Normal. Pancreas: No mass or duct dilation. Adrenals:No mass. Kidneys: No mass, stone, or hydronephrosis. GI tract: No small or large bowel dilation. Normal appendix. Surgical material at the GE junction. Di stal small bowel anastomosis, uncomplicated. Mesentery/Peritoneum: No ascites, mass, or free air. Retroperitoneum: No mass. Pelvis: Pelvic organs are within normal limits. Previously described left ureteral stone no longer vi sualized. Bones/Soft Tissues: Left lower quadrant medication pump otherwise the soft tissues tissues and body w all unremarkable. No acute osseous finding. Additional Findings: None. IMPRESSION: No acute abdominopelvic process. Reviewed, dictated and finalized at location K.
[2021-11-09 17:44] VITALS: BP 162/97; PULSE 69; RESP 16; TEMP 37.1; O2SAT 99
--- NOTE | 2021-11-09 17:50 | PC.NURSE ---
Dr. Pham at bedside to assess pt.
--- NOTE | 2021-11-09 18:04 | ED.ABDPAIN ---
HPI - Abdominal Pain General Chief Complaint: Abdominal Pain Stated Complaint: flank pain Time Seen by Provider: 11/09/21 17:48 Source: patient History of Present Illness HPI narrative: Patient presents with left flank pain. Reports a history of a ureteral stone requiring surgical removal. 1 month ago. His pain feels similar to that episode. Reports pain in the left flank is constant and starts in his back and then radiates down. No clear aggravating or alleviating factors. Denies any nausea or vomiting denies any urinary symptoms Related Data Home Medications Medication Instructions Recorded Confirmed Alive Men's 50 Plus Multivit 1 dose BYMOUTH DAILY 09/26/21 09/26/21 buspirone 10 mg PO TID 09/26/21 09/26/21 cholecalciferol (vitamin D3) 100 mcg PO DAILY 09/26/21 09/26/21 divalproex 250 mg PO TID 09/26/21 09/26/21 ferrous sulfate 325 mg PO DAILY 09/26/21 09/26/21 hydroxyzine HCl 50 mg PO QID 09/26/21 09/26/21 sertraline 50 mg PO DAILY 09/26/21 09/26/21 sertraline 100 mg PO DAILY 09/26/21 09/26/21 tizanidine 2 mg PO TID 09/26/21 09/26/21 trazodone 100 mg PO HS 09/26/21 09/26/21 Allergies Allergy/AdvReac Type Severity Reaction Status Date / Time No Known Allergies Allergy Verified 11/09/21 18:33 Review of Systems Review of Systems: CONSTITUTIONAL: Denies fever, chills, or sweats. EYES: Denies visual changes, redness, or discharge. ENT: Denies rhinorrhea, congestion, sore throat, or otalgia. CARDIOVASCULAR: Denies chest pain, palpitations, or edema. RESPIRATORY: Denies cough or dyspnea. GASTROINTESTINAL: Denies abdominal pain, nausea, vomiting, or diarrhea. GENITOURINARY: Denies dysuria or hematuria. SKIN: Denies rash or itching. MUSCULOSKELETAL: Denies back pain, joint pain, or myalgia. NEUROLOGIC: Denies headache, numbness, dizziness, or weakness. PSYCHIATRIC: Denies anxiety or depression. All systems reviewed & are unremarkable except as noted in HPI and below PMFSH Past Medical History Medical History Chronic back pain History of anxiety History of depression History of sleep apnea Kidney stone Surgical History Surgical History History of appendectomy History of gastric bypass History of tonsillectomy Family History Family History Father Family history of emphysema, Onset Age: 40 Mother Bone marrow disease Sibling Heart disease Liver failure Other Family history of arthritis Social History Social History Smoking status: Never smoker Alcohol intake: never Substance use: current Substance use type: marijuana Other substance usage details: medicinal marijuana Last use: couple days ago Spiritual care concerns: No Exam Narrative: GENERAL: Well-appearing, well-nourished, and in no acute distress. HEAD: Normocephalic, atraumatic. EYES: PERRLA and EOMI. ENT: Nares clear, no rhinorrhea or epistaxis. Mucous membranes moist. NECK: Supple. No masses. No JVD ABDOMEN: Soft, nontender, nondistended, normal active bowel sounds. EXTREMITIES: Normal range of motion. No edema. SKIN: Warm, dry, no rash. NEURO: No focal deficits. Alert and oriented x3. PSYCH: Normal mood and affect. Course Reevaluation(s) Reevaluation #1: Patient resting more comfortably results and plan with patient. Patient is comfortable outpatient plan. Patient did request examination of his rectum as he has had a history of hemorrhoids did report some bloody stools earlier today and has some pain around his rectum Date: 11/09/21 Time: 19:59 Vital Signs Vital signs: Vital Signs Temperature 37.1 C 11/09/21 17:44 Pulse Rate 69 11/09/21 17:44 Respiratory Rate 16 11/09/21 17:44 Blood Pressure 162/97 H 11/09/21 17:44 Pulse Oximetry 99 11/09/21 17:44 Temperatur
[2021-11-09] MEDS: HYDROmorphone HCL INJ (*CRX) 1 MG/ML SYR 0.5 MG IV PUSH (18:06)
[2021-11-09] MEDS: SODIUM CHLORIDE 0.9% IV 1,000 ML 999 ML IV CONT (18:07)
--- NOTE | 2021-11-09 18:17 | PC.NURSE ---
Patient off unit to Radiology.
--- NOTE | 2021-11-09 18:27 | PC.NURSE ---
Patient returned to room from CT and placed back on monitor.
[2021-11-09 18:37] LABS: Basophils Percent Auto 0.3 % (0.2-1.2); Eosinophils Percent Auto 0.1 % (0-4.4); Hematocrit 42.3 % (42.0-52.0); Hemoglobin 15.1 g/dL (14.0-18.0); Immature Granulocyte Absolute 0.08 K/mm3 (0.00-0.031); Immature Granulocyte Percent A 0.7 % (0-0.5); Lymphocytes Absolute Auto 1.42 K/mm3 (0.9-3.2); Lymphocytes Percent Auto 12.1 % (18.3-44.2); Mean Corpuscular HGB Conc 35.7 g/dl (32-36); Mean Corpuscular Volume 89.6 fl (80-100); Mean Platelet Volume 10.1 fl (7.4-10.4); Monocytes Percent Auto 8.5 % (2.6-8.5); Neutrophils Absolute Auto 9.2 K/mm3 (1.3-6.7); Neutrophils Percent Auto 78.3 % (45.5-73.1); Platelet Count Result 250 k/mm3 (150-375); Red Blood Count 4.72 M/mm3 (4.6-6.20); Red Cell Distribution Width 13.9 % (11.5-14.5); White Blood Count 11.7 K/mm3 (4.5-10.0)
[2021-11-09 18:41] LABS: INR 1.3; Prothrombin Time 15.8 Seconds (11.1-14.7)
[2021-11-09 18:42] LABS: Partial Thromboplastin Time 28.2 SECONDS (22.3-36.8)
[2021-11-09 19:33] LABS: Alanine Aminotransferase 30 U/L (4-50); Albumin Level 3.7 g/dL (3.5-5.1); Alkaline Phosphatase 78 U/L (38-126); Anion Gap 8 mmol/L (8-16); Aspartate Amino Transferase 38 U/L (17-59); Bilirubin,Total 1.2 mg/dL (0.2-1.3); Blood Urea Nitrogen 9 mg/dL (9-20); Calcium 8.3 mg/dL (8.4-10.2); Carbon Dioxide 18 mmol/L (22-30); Chloride 113 mmol/L (98-107); Estimated CRCL calculation 97 ml/min; Estimated Glomerular Filt Rate > 60; Glucose 113 mg/dL (65-110); Potassium 3.6 mmol/L (3.4-5.0); Sodium 139 mmol/L (137-145)
--- NOTE | 2021-11-09 19:37 | PC.NURSE ---
Patient report given to EM Lew. All questions answered and care of patient transferred.
[2021-11-09 19:40] VITALS: BP 159/92; PULSE 59; RESP 17; O2SAT 99
[2021-11-09] MEDS: HYDROmorphone HCL INJ (*CRX) 1 MG/ML SYR IV PUSH (19:42)
[2021-11-09 19:52] LABS: Appearance Urine Clear (Clear); Bilirubin Urine Negative (Negative); Blood Urine Negative (Negative); Color Urine Yellow (Yellow); Glucose Urine UA Negative (Negative); Ketones Urine 1+ mg/dL (Negative); Leukocyte Esterase Ur Negative LEU/UL (Negative); Nitrate Urine Negative (Negative); Protein Urine Negative (Negative); Specific Grav Ur 1.015 (1.001-1.035); Urobilinogen Urine 0.2 mg/dL (<2.0); pH Urine 7.5 (5.0-9.0)
[2021-11-09 19:55] LABS: Mucus Urine Rare /lpf; RBC Urine 0-2 /hpf (0-2); WBC Urine 0-3 /hpf
[2021-11-09 20:02] LABS: Add Urine Microscopic? YES
[2021-11-09 20:24] VITALS: BP 172/92; PULSE 57; RESP 16; O2SAT 98
== END 2021-11-09 20:22 | disposition home or self-care (01) ==
PROVIDERS: Emergency Provider Emergency Medicine; PCP Student in an Organized Health Care Education/Training Program
DX: R10.9 Unspecified abdominal pain (principal); K64.9 Unspecified hemorrhoids; F41.9 Anxiety disorder, unspecified; F32.A Depression, unspecified; G47.30 Sleep apnea, unspecified; Z87.442 Personal history of urinary calculi; Z98.84 Bariatric surgery status
CPT/HCPCS: 36415; 74176; 80053; 81001; 85025; 85610; 85730; 96365; 96375; 96376; 99284; J0131; J1170; J7030

== ENCOUNTER 2021-12-21 16:45 | Emergency (ER) | payer MEDICARE, SELFPAY ==
[2021-12-21] VITALS (16 sets, daily range): BP systolic 155–226; BP diastolic 78–98; PULSE 67–82; RESP 14–19; TEMP 36.4; O2SAT 97–100
--- NOTE | ~2021-12-21 | CT_ITS ---
EXAMINATION: CTA chest abdomen pelvis DATE: 12/21/2021 17:47 CDT INDICATION: Chest and abdomen pain. Hypertension. History of aneurysm of the ascending aorta. TECHNIQUE: Computed tomographic angiography (CTA) of the chest, abdomen, and pelvis was performed wit hout and with 100 mL Omnipaque-350 intravenous contrast. The dose-length product was 1041.20 mGy-cm. Maximum intensity projection 3D-reconstructions of the aorta and other arteries were constructed by lindsey technologist on a separate workstation. COMPARISON: CTA dated 10/01/2021 FINDINGS: CHEST CTA: There is a borderline size fusiform ascending thoracic aortic aneurysm measuring 4 cm. Remainder of [facility] aorta is within normal limits. No evidence for dissection. Mild paraseptal emphysema. No endobronc hial lesions. Heart size normal. No pneumothorax. No focal airspace consolidation. No suspicious pulm onary nodules or masses. No suspicious pulmonary nodules or masses. No thoracic lymphadenopathy. ABDOMEN AND PELVIS CTA: Fatty infiltration of the liver. Gallbladder is present. The spleen, pancreas, adrenal glands and kid neys are unremarkable. There is bowel anastomotic suture line in the right mid abdomen. No lymphadeno celestino. No significant vascular abnormality. No free air or free fluid. Gallbladder is present. There are chronic wedge compression deformities of L1 and L2. Mild thoracic and lumbar spondylosis. IMPRESSION: 1. Stable borderline fusiform ascending thoracic aortic aneurysm measuring 4 cm. 2: No acute abnormality of the chest, abdomen or pelvis. Reviewed, dictated and finalized at location A. IMPRESSION: 1. Stable borderline fusiform ascending thoracic aortic aneurysm measuring 4 cm . 2: No acute abnormality of the chest, abdomen or pelvis.
--- NOTE | 2021-12-21 16:47 | ECG_ITS ---
Measurements Intervals [place] Rate: 71 P: 39 ID: 158 QRS: -33 QRSD: 97 T: -2 QT: 403 QTc: 439 Interpretive Statements SINUS RHYTHM VENTRICULAR BIGEMINY EARLY PRECORDIAL R/S TRANSITION BORDERLINE ST ABNORMALITY- ANTEROLATERAL LEADS BASELINE WANDER- I, II, III, AVF ABNORMAL ECG Electronically Signed On 12-21-2021 21:10:56 CDT by Danis Beal D.O.
[2021-12-21 17:02] LABS: Basophils Absolute Auto 0.1 K/mm3 (0.0-0.1); Basophils Percent Auto 0.4 % (0.2-1.2); Eosinophils Percent Auto 0.1 % (0-4.4); Hematocrit 40.6 % (42.0-52.0); Hemoglobin 14.3 g/dL (14.0-18.0); Immature Granulocyte Absolute 0.06 K/mm3 (0.00-0.031); Immature Granulocyte Percent A 0.4 % (0-0.5); Lymphocytes Absolute Auto 2.21 K/mm3 (0.9-3.2); Lymphocytes Percent Auto 15.9 % (18.3-44.2); Mean Corpuscular HGB Conc 35.2 g/dl (32-36); Mean Corpuscular Hemoglobin 31.9 pg (26-34); Mean Corpuscular Volume 90.6 fl (80-100); Mean Platelet Volume 9.7 fl (7.4-10.4); Monocytes Absolute Auto 0.8 K/mm3 (0.1-0.6); Neutrophils Absolute Auto 10.7 K/mm3 (1.3-6.7); Neutrophils Percent Auto 77.2 % (45.5-73.1); Platelet Count Result 234 k/mm3 (150-375); Red Blood Count 4.48 M/mm3 (4.6-6.20); Red Cell Distribution Width 13.7 % (11.5-14.5); White Blood Count 13.9 K/mm3 (4.5-10.0)
[2021-12-21 17:03] LABS: Appearance Urine Clear (Clear); Bilirubin Urine 1+ (Negative); Blood Urine Negative (Negative); Color Urine Yellow (Yellow); Glucose Urine UA Negative (Negative); Ketones Urine 2+ mg/dL (Negative); Leukocyte Esterase Ur Negative LEU/UL (Negative); Nitrate Urine Negative (Negative); Protein Urine Negative (Negative); pH Urine 8.5 (5.0-9.0)
[2021-12-21 17:05] LABS: Add Urine Microscopic? NO
--- NOTE | 2021-12-21 17:05 | ED.GENADULT ---
HPI - General Adult General Chief complaint: Chest Pain Stated complaint: chest pain Time Seen by Provider: 12/21/21 16:48 History of Present Illness HPI narrative: 61-year-old male with history of hypertension and abdominal aortic aneurysm presented to the emergency department for evaluation of chest pain, abdominal pain and back pain. Patient states this morning at 11 AM he was having some chest pain that he associated with heartburn. Patient states over the course of the day the chest pain had improved. Patient is now complaining of abdominal and back pain. Patient states he does have a pain pump related to your chronic back pain. Patient states this pain is different than his chronic back pain. Patient does take medications for his blood pressure and states that he has taken all of his medications today. Related Data Home Medications Medication Instructions Recorded Confirmed Alive Men's 50 Plus Multivit 1 dose BYMOUTH DAILY 09/26/21 12/21/21 cholecalciferol (vitamin D3) 100 100 mcg PO DAILY 09/26/21 12/21/21 mcg (4,000 unit) capsule divalproex 250 mg tablet,extended 250 mg PO TID 09/26/21 12/21/21 release 24 hr ferrous sulfate 325 mg (65 mg 325 mg PO DAILY 09/26/21 12/21/21 iron) tablet hydroxyzine HCl 50 mg tablet 50 mg PO QID 09/26/21 12/21/21 sertraline 100 mg tablet 100 mg PO DAILY 09/26/21 12/21/21 sertraline 50 mg tablet 50 mg PO DAILY 09/26/21 12/21/21 trazodone 100 mg tablet 100 mg PO HS 09/26/21 12/21/21 Allergies Allergy/AdvReac Type Severity Reaction Status Date / Time No Known Allergies Allergy Verified 11/09/21 18:33 Review of Systems Review of Systems: CONSTITUTIONAL: Denies fever, chills, or sweats. EYES: Denies visual changes, redness, or discharge. ENT: Denies rhinorrhea, congestion, sore throat, or otalgia. CARDIOVASCULAR: See HPI RESPIRATORY: Denies cough or dyspnea. GASTROINTESTINAL: See HPI GENITOURINARY: Denies dysuria or hematuria. SKIN: Denies rash or itching. MUSCULOSKELETAL: Denies back pain, joint pain, or myalgia. NEUROLOGIC: Denies headache, numbness, or weakness. [facility] Past Medical History Medical History Chronic back pain History of anxiety History of depression History of sleep apnea Kidney stone Surgical History Surgical History History of appendectomy History of gastric bypass History of tonsillectomy Family History Family History Father Family history of emphysema, Onset Age: 40 Mother Bone marrow disease Sibling Heart disease Liver failure Other Family history of arthritis Social History Social History Smoking status: Never smoker Alcohol intake: never Substance use: current Substance use type: marijuana Other substance usage details: medicinal marijuana Last use: couple days ago Spiritual care concerns: No Exam Narrative: APPEARANCE: Uncomfortable appearing upon arrival to the ED. HEAD: normocephalic, atraumatic. EYES: PERRLA/EOMI, conjunctivae clear. NOSE: Normal no drainage EARS:TMS clear with good light reflex. THROAT: Pharynx clear, no exudate. NECK: Supple. No adenopathy, no masses. RESPIRATORY: Airway patent, respirations nonlabored. Clear to auscultation bilaterally, no rales, rhonchi, wheezing. CARDIOVASCULAR: Regular rate and rhythm without murmurs rubs or gallops. ABDOMINAL: Soft, nontender, nondistended, normal bowel sounds MUSCULOSKELETAL: Reproducible muscular back tenderness to palpation. Minimal abdominal tenderness to palpation. NEURO: Alert. Cranial nerves II through XII intact. Grossly intact SKIN: Warm, dry. Normal Color Course Course Emergency Course: Patient had a negative CTA of chest abdomen pelvis. Patient had negative serial troponins. On arrival to the ED pat
[2021-12-21] MEDS: HYDROmorphone HCL INJ (*CRX) 1 MG/ML SYR IV PUSH ×3 (17:11→20:55)
[2021-12-21 17:12] LABS: Alanine Aminotransferase 23 U/L (6-50); Albumin Level 4.4 g/dL (3.5-5.1); Alkaline Phosphatase 97 U/L (38-126); Anion Gap 13 mmol/L (8-16); Aspartate Amino Transferase 40 U/L (17-59); Bilirubin,Total 1.4 mg/dL (0.2-1.3); Blood Urea Nitrogen 10 mg/dL (9-20); Carbon Dioxide 15 mmol/L (22-30); Chloride 112 mmol/L (98-107); Estimated CRCL calculation 72 ml/min; Estimated Glomerular Filt Rate > 60; Glucose 119 mg/dL (65-110); INR 1.3; Lipase 96 U/L (23-300); Potassium 3.9 mmol/L (3.4-5.0); Sodium 140 mmol/L (137-145)
[2021-12-21 17:13] LABS: Partial Thromboplastin Time 27.6 SECONDS (22.3-36.8)
[2021-12-21 17:24] LABS: Troponin I < 0.012 ng/mL (0.000-0.034)
[2021-12-21 20:07] LABS: Troponin I < 0.012 ng/mL (0.000-0.034)
[2021-12-21] MEDS: hydrALAZINE HCL 20 MG/ML VIAL 10 MG IV PUSH ×2 (20:30→21:00)
== END 2021-12-21 22:05 | disposition home or self-care (01) ==
PROVIDERS: Emergency Provider Emergency Medicine; PCP Student in an Organized Health Care Education/Training Program
DX: M54.50 Low back pain, unspecified (principal); R94.31 Abnormal electrocardiogram [ECG] [EKG]; F41.9 Anxiety disorder, unspecified; F32.9 Major depressive disorder, single episode, unspecified
CPT/HCPCS: 36415; 71275; 74174; 80053; 81003; 83690; 84484; 85025; 85610; 85730; 93005; 96374; 96376; 99284; J0360; J1170; Q9967

== ENCOUNTER 2022-02-13 14:20 | Observation (INO) | payer MEDICARE, SELFPAY ==
[2022-02-13] VITALS (25 sets, daily range): BP systolic 160–218; BP diastolic 90–115; PULSE 33–91; RESP 14–27; TEMP 37.1–37.3; O2SAT 96–100; BMI 23.8
--- NOTE | ~2022-02-13 | CT_ITS ---
EXAMINATION: CTA abdomen pelvis DATE: 02/13/2022 17:17 INDICATION: Abdominal pain. Back pain. TECHNIQUE: Computed tomographic angiography (CTA) of the abdomen and pelvis was performed with 100 mL Omnipaque-350 intravenous contrast. Automated exposure control and iterative reconstruction techniqu e were employed. The dose-length product was 634.33 mGy-cm. Maximum intensity projection 3D-reconstru ctions of the aorta and other arteries were constructed by the technologist on a separate workstation . COMPARISON: Head CT 12/21/2021 FINDINGS: The visualized portions of the lung bases demonstrate mild emphysema. No pleural effusion. There is left atrial enlargement of the heart. No pericardial effusion. The liver, gallbladder, splee n, pancreas, adrenal glands, and kidneys are normal. There are surgical changes of the stomach. There are no dilated loops of bowel. The appendix is not visualized. Abdominal aorta is normal in caliber. There is no significant stenosis of celiac axis, superior mesenteric artery, inferior mesenteric art aleksandra, or the renal arteries. There are no pathologically enlarged lymph nodes. There is no free intrap eritoneal fluid. There is a subcutaneous pump in left abdomen with intrathecal catheter. There are ch ronic compression fractures of L1 on L2. There is a hemangioma in L3 vertebral body. There is mild th oracolumbar spondylosis. IMPRESSION: 1. No specific etiology for the patient's symptoms. Reviewed, dictated and finalized at location A.
--- NOTE | ~2022-02-13 | XR_ITS ---
EXAMINATION: XR chest 1V portable DATE: 02/13/2022 16:56 INDICATION: Weakness TECHNIQUE: frontal view of the chest was obtained. COMPARISON: Chest radiograph dated 10/01/2021 FINDINGS: The lungs remain clear with no focal airspace opacities, pulmonary edema, pleural effusion or pneumot horax. The cardiomediastinal silhouette is normal. Visualized bones and soft tissues are unremarkable . IMPRESSION: 1. No acute cardiopulmonary disease. Reviewed, dictated and finalized at location A.
--- NOTE | 2022-02-13 14:29 | ECG_ITS ---
Measurements Intervals [place] Rate: 64 P: [place]: 0 QRS: -18 QRSD: 97 T: -13 QT: 379 QTc: 391 Interpretive Statements SINUS OR ECTOPIC ATRIAL RHYTHM FREQUENT VENTRICULAR PREMATURE COMPLEXES INCOMPLETE RIGHT BUNDLE BRANCH BLOCK BORDERLINE ST-T WAVE ABNORMALITY- ANT/INF LEADS BASELINE WANDER- III, AVR, AVL, AVF, V3-V5 ABNORMAL ECG Electronically Signed On 02-13-2022 16:23:01 CDT by Danis Beal D.O.
[2022-02-13 14:48] LABS: Basophils Percent Auto 0.4 % (0.2-1.2); Eosinophils Percent Auto 0.1 % (0-4.4); Hematocrit 40.1 % (42.0-52.0); Hemoglobin 14.1 g/dL (14.0-18.0); Immature Granulocyte Absolute 0.03 K/mm3 (0.00-0.031); Immature Granulocyte Percent A 0.3 % (0-0.5); Lymphocytes Absolute Auto 2.03 K/mm3 (0.9-3.2); Lymphocytes Percent Auto 18.9 % (18.3-44.2); Mean Corpuscular HGB Conc 35.2 g/dl (32-36); Mean Corpuscular Hemoglobin 31.5 pg (26-34); Mean Corpuscular Volume 89.7 fl (80-100); Mean Platelet Volume 9.8 fl (7.4-10.4); Monocytes Absolute Auto 0.8 K/mm3 (0.1-0.6); Monocytes Percent Auto 7.6 % (2.6-8.5); Neutrophils Absolute Auto 7.8 K/mm3 (1.3-6.7); Neutrophils Percent Auto 72.7 % (45.5-73.1); Platelet Count Result 229 k/mm3 (150-375); Red Blood Count 4.47 M/mm3 (4.6-6.20); Red Cell Distribution Width 13.8 % (11.5-14.5); White Blood Count 10.7 K/mm3 (4.5-10.0)
[2022-02-13 14:59] LABS: INR 1.3; Partial Thromboplastin Time 23.3 SECONDS (22.3-36.8); Prothrombin Time 15.7 Seconds (11.1-14.7)
[2022-02-13 15:09] LABS: Alanine Aminotransferase 24 U/L (6-50); Albumin Level 4.6 g/dL (3.5-5.1); Alkaline Phosphatase 101 U/L (38-126); Anion Gap 11 mmol/L (8-16); Aspartate Amino Transferase 36 U/L (17-59); Bilirubin,Total 1.4 mg/dL (0.2-1.3); Blood Urea Nitrogen 6 mg/dL (9-20); Calcium 9.1 mg/dL (8.4-10.2); Carbon Dioxide 16 mmol/L (22-30); Chloride 114 mmol/L (98-107); Estimated CRCL calculation 87 ml/min; Estimated Glomerular Filt Rate > 60; Glucose 111 mg/dL (65-110); Potassium 3.2 mmol/L (3.4-5.0); Sodium 141 mmol/L (137-145)
--- NOTE | 2022-02-13 16:09 | PC.NURSE ---
Pt having upper back pain and complaining of feeling weak. Pt informed nurse he has a history of AAA. MD informed.
[2022-02-13] MEDS: HYDROmorphone HCL INJ (*CRX) 1 MG/ML SYR 0.5 MG IV PUSH ×2 (16:42→20:14)
[2022-02-13] MEDS: PANTOPRAZOLE SODIUM IV 40 MG VIAL IV PUSH (16:43)
[2022-02-13 17:30] LABS: Lactic Acid Reflex 1.5 mmol/L (0.7-2.0)
[2022-02-13 17:41] LABS: Appearance Urine Clear (Clear); Bilirubin Urine Negative (Negative); Glucose Urine UA Negative (Negative); Ketones Urine 1+ mg/dL (Negative); Leukocyte Esterase Ur Negative LEU/UL (Negative); Nitrate Urine Negative (Negative); Protein Urine Negative (Negative); Specific Grav Ur 1.015 (1.001-1.035); Urobilinogen Urine 0.2 mg/dL (<2.0); pH Urine 8.5 (5.0-9.0)
[2022-02-13 17:44] LABS: Add Urine Microscopic? YES; Blood Urine Trace-Intact (Negative); Color Urine Light Yellow (Yellow)
[2022-02-13 17:46] LABS: RBC Urine 0-2 /hpf (0-2); WBC Urine 0-3 /hpf
--- NOTE | 2022-02-13 17:53 | ED.GENADULT ---
HPI - General Adult General Chief complaint: GI Bleed Stated complaint: diarrhea, dark stool Time Seen by Provider: 02/13/22 15:57 Source: patient, RN notes reviewed and old records reviewed Mode of arrival: ambulatory Limitations: no limitations History of Present Illness HPI narrative: This is a 61 year old male with history of chronic pain, anxiety and depression who presents for evaluation of not feeling right. Patient states he has not felt right since his pain pump was changed last year but his symptoms worsened this week with severe heat. He reports nausea and left abdominal pain. He reports he has abdominal problems due to the medication that he takes. He reports chronic diarrhea , and he takes stool softeners because he is on pain medication. He reports having 2 episodes of diarrhea today. He states prior to arrival he had dark stools. He also reports left back pain that seems different than his chronic back pain. He also reports chronic runny nose and congestion. He denies chest pain or sob. Related Data Home Medications Medication Instructions Recorded Confirmed Alive Men's 50 Plus Multivit 1 dose BYMOUTH DAILY 09/26/21 12/21/21 cholecalciferol (vitamin D3) 100 100 mcg PO DAILY 09/26/21 12/21/21 mcg (4,000 unit) capsule divalproex 250 mg tablet,extended 250 mg PO TID 09/26/21 12/21/21 release 24 hr ferrous sulfate 325 mg (65 mg 325 mg PO DAILY 09/26/21 12/21/21 iron) tablet hydroxyzine HCl 50 mg tablet 50 mg PO QID 09/26/21 12/21/21 sertraline 100 mg tablet 100 mg PO DAILY 09/26/21 12/21/21 sertraline 50 mg tablet 50 mg PO DAILY 09/26/21 12/21/21 trazodone 100 mg tablet 100 mg PO HS 09/26/21 12/21/21 Allergies Allergy/AdvReac Type Severity Reaction Status Date / Time No Known Allergies Allergy Verified 11/09/21 18:33 Review of Systems Review of Systems: All systems reviewed & are unremarkable except as noted in HPI and below Constitutional: Constitutional: Denies chills, Reports fatigue and Denies fever(s) ENT: Reports nasal congestion Cardiovascular: Cardiovascular: Denies chest pain and Denies rapid heart rate Respiratory: Respiratory: Denies chest congestion and Denies cough Gastrointestinal: Gastrointestinal: Reports abdominal pain, Reports diarrhea, Reports nausea and Denies vomiting Genitourinary: Genitourinary: Denies hematuria and Reports dysuria Musculoskeletal: Musculoskeletal: Reports back pain Neurologic: Denies headache(s) and Denies focal weakness PMF Past Medical History Medical History Chronic back pain History of anxiety History of depression History of sleep apnea Kidney stone Surgical History Surgical History History of appendectomy History of gastric bypass History of tonsillectomy Family History Family History Father Family history of emphysema, Onset Age: 40 Mother Bone marrow disease Sibling Heart disease Liver failure Other Family history of arthritis Social History Social History Smoking status: Never smoker Alcohol intake: never Substance use: current Substance use type: marijuana Other substance usage details: medicinal marijuana Last use: couple days ago Spiritual care concerns: No Exam Const: General: alert and ill appearing chronically Orientation/consciousness: patient oriented x3 HENMT: Head: normal to inspection Face and sinus: normal facial exam Eyes: Pupils: Equal, round and reactive pupils present EOM: EOMs intact bilaterally Chest: Chest palpation & inspection: normal inspection of the chest Resp: Effort & Inspection: normal respiratory effort Auscultation: clear to auscultation bilaterally and breath sounds present Cardio: Rate: regular rate Rhyth
[2022-02-13 17:57] LABS: SARS-CoV-2 RNA PCR Negative
--- NOTE | 2022-02-13 18:46 | PC.NURSE ---
at 1711, pt went into [facility], went to room to assess pt, he said he felt dizzy and cold, vital signs were taken, md was informed, will continue to monitor
[2022-02-13] MEDS: POTASSIUM CHLORIDE 20 MEQ TABLET 40 MEQ PO (18:58)
[2022-02-13] MEDS: hydrALAZINE HCL 20 MG/ML VIAL IV PUSH (18:58)
[2022-02-13 19:07] LABS: Magnesium 2.2 mg/dL (1.6-2.3)
--- NOTE | 2022-02-13 21:06 | ADMGEN ---
This patient, Jose Maxwell, was admitted to IMU Room 202-. Patient/family oriented to hospital policies and general routines including ID bracelet, bed and alarms, visiting hours, pain management, procedures, bathroom and other care routines, personal items, smoking policy, room service/diet, and visiting hours. Information on how to activate the Rapid Response Team has been discussed. Patient/Family are encouraged to report perceived risks to care and to ask questions if they do not understand what they are told or what they should do.
--- NOTE | 2022-02-13 22:44 | PC.NURSE ---
Pt has implanted [employer] pain pump to LLQ. Pt is unsure of current amount of medication that is infusing in his pump. He has a picture on his phone that was dated December 25, 2021, but states that the concentration of medication has changed since that time. Pump was refilled February 05, 2022. Per the picture on his phone, pump is filled with: -morphine 219 mcg/hr -clonidine 82.7 mcg/day -bupivacaine 2,100.2 mcg/day Pt is allowed to bolus his pain pump up to 4 times a day.
--- NOTE | 2022-02-13 23:45 | PM.IMHP ---
H&P: HPI History of Present Illness Date/Time: 02/13/22 23:45 Chief Complaint: Dark stools Narrative: Patient is a 61-year-old male past medical history chronic back pain after a fall when he was young with pain pump, anxiety/depression, PTSD, insomnia, essential hypertension who presents with complaints of dark stools, dizziness episodes. he states his dizzy spells seem to be random which resolved spontaneously. He has had multiple episodes which almost led to him falling. Patient states he has had increased stool output from the Colace he takes while on his chronic pain pump. he has left upper quadrant abdominal pain associated with his diarrhea. he states he has lost 40 lb unintentionally over last year. He had a colonoscopy recently in last couple years which he did not have any polyps that he knows of. Patient was on iron supplement in the past , not currently. he has not used any Pepto-Bismol. In the ED: CT abdomen pelvis with no acute finding, patient had episode of nonsustained V-tach. patient is mildly hypokalemic 3.2. Dr. Paulino cardiology was consulted for the cardiac event. patient to be admitted for observation in IMU for nonsustained V-tach Review of Systems Review of Systems: Constitutional: No Fever, No Chills, No Night Sweats, endorses fatigue and malaise, endorses 40 lb weight loss over last year ENT/Mouth: No Hearing Changes, No Ear Pain, No Nasal Congestion, No Sinus Pain, No Hoarseness, No sore throat, No Rhinorrhea, No Swallowing Difficulty Eyes: No Eye Pain, No Redness, No Vision Changes Cardiovascular: No Chest Pain, No Palpitations, No Dyspnea on Exertion, No Orthopnea, No Claudication, No Edema Respiratory: No Cough, No Sputum, No Wheezing, No Shortness of Breath Gastrointestinal: No Nausea, No Vomiting, No Constipation,No Heartburn, No Hematochezia, No Melena. endorses diarrhea new left upper quadrant abdominal pain Genitourinary: No Dysuria, No Urinary Frequency, No Hematuria, No Urinary Incontinence, No Urgency Musculoskeletal: No Arthralgias, endorses chronic back pain Skin: No Skin Lesions, No Pruritis, No Hair Changes Neuro: No Weakness, No Numbness, No Paresthesias, No Loss of Consciousness, No Syncope, No Dizziness, No Headache Psych: No Anxiety/Panic, No Depression, No Insomnia Heme: No Bruising, No Bleeding Lymph: No Adenopathy Endocrine: No Polyuria, No Polydipsia, No Temperature Intolerance [facility] Past Medical History Medical History Chronic back pain History of anxiety History of depression History of sleep apnea Kidney stone Surgical History Surgical History History of appendectomy History of gastric bypass History of tonsillectomy Family History Family History Father Family history of emphysema, Onset Age: 40 Mother Bone marrow disease Sibling Heart disease Liver failure Other Family history of arthritis Social History Social History Smoking status: Former smoker Tobacco type: cigarettes Alcohol intake: never Substance use: current Substance use type: marijuana Other substance usage details: medicinal marijuana Last use: 02/12/22 Spiritual care concerns: No Meds Home Medications and Allergies Home Medications Medication Instructions Recorded Confirmed Type Alive Men's 50 Plus Multivit 1 dose BYMOUTH DAILY 09/26/21 02/13/22 History divalproex 250 mg tablet,extended 250 mg PO TID 09/26/21 02/13/22 History release 24 hr hydroxyzine HCl 50 mg tablet 50 mg PO QID 09/26/21 02/13/22 History sertraline 100 mg tablet 100 mg PO DAILY 09/26/21 02/13/22 History sertraline 50 mg tablet 50 mg PO DAILY 09/26/21 02/13/22 History trazodone 100 mg tablet 100 mg PO HS 09/26/21 02/13/22 History bu
[2022-02-14] VITALS (19 sets, daily range): BP systolic 96–149; BP diastolic 53–88; PULSE 42–55; RESP 12–20; TEMP 36.4–36.8; O2SAT 97–100; BMI 25.0
[2022-02-14] MEDS: DIVALPROEX SODIUM ER 250 MG TAB.24H PO ×4 (00:03→17:58)
[2022-02-14] MEDS: busPIRone HCL 10 MG TABLET PO ×5 (00:03→22:05)
[2022-02-14] MEDS: hydrOXYzine HCL 25 MG TABLET 50 MG PO ×5 (00:04→22:05)
[2022-02-14] MEDS: POTASSIUM CHLORIDE 20 MEQ TABLET 40 MEQ PO (00:04)
[2022-02-14] MEDS: traZODone HCL 50 MG TABLET 100 MG PO ×2 (00:04→22:05)
[2022-02-14] MEDS: ACETAMINOPHEN 325 MG TABLET 650 MG PO (00:05)
[2022-02-14] MEDS: HYDROmorphone HCL INJ (*CRX) 1 MG/ML SYR 0.5 MG IV PUSH ×2 (02:36→11:50)
[2022-02-14 04:42] LABS: Basophils Percent Auto 0.2 % (0.2-1.2); Eosinophils Percent Auto 0.4 % (0-4.4); Hematocrit 36.2 % (42.0-52.0); Hemoglobin 12.1 g/dL (14.0-18.0); Immature Granulocyte Absolute 0.02 K/mm3 (0.00-0.031); Immature Granulocyte Percent A 0.2 % (0-0.5); Lymphocytes Absolute Auto 1.95 K/mm3 (0.9-3.2); Lymphocytes Percent Auto 21.6 % (18.3-44.2); Mean Corpuscular HGB Conc 33.4 g/dl (32-36); Mean Corpuscular Hemoglobin 31.5 pg (26-34); Mean Corpuscular Volume 94.3 fl (80-100); Mean Platelet Volume 9.9 fl (7.4-10.4); Monocytes Absolute Auto 0.9 K/mm3 (0.1-0.6); Monocytes Percent Auto 10.3 % (2.6-8.5); Neutrophils Absolute Auto 6.1 K/mm3 (1.3-6.7); Neutrophils Percent Auto 67.3 % (45.5-73.1); Platelet Count Result 170 k/mm3 (150-375); Red Blood Count 3.84 M/mm3 (4.6-6.20); Red Cell Distribution Width 14.3 % (11.5-14.5)
[2022-02-14 04:51] LABS: Alanine Aminotransferase 17 U/L (6-50); Albumin Level 3.5 g/dL (3.5-5.1); Alkaline Phosphatase 67 U/L (38-126); Anion Gap 5 mmol/L (8-16); Aspartate Amino Transferase 28 U/L (17-59); Bilirubin,Total 0.8 mg/dL (0.2-1.3); Blood Urea Nitrogen 9 mg/dL (9-20); Calcium 8.3 mg/dL (8.4-10.2); Carbon Dioxide 20 mmol/L (22-30); Chloride 113 mmol/L (98-107); Estimated CRCL calculation 78 ml/min; Estimated Glomerular Filt Rate > 60; Glucose 103 mg/dL (65-110); Magnesium 2.1 mg/dL (1.6-2.3); Potassium 4.2 mmol/L (3.4-5.0); Sodium 138 mmol/L (137-145)
[2022-02-14] MEDS: MULTIVITAMINS /C LUTEIN (CENTRUM SILVER) TABLET *BKC 1 TAB PO (09:22)
[2022-02-14] MEDS: SERTRALINE HCL 50 MG TABLET 150 MG PO (09:23)
[2022-02-14] MEDS: PANTOPRAZOLE SODIUM IV 40 MG VIAL IV PUSH (09:58)
--- NOTE | 2022-02-14 12:05 | ECG_ITS ---
Measurements Intervals [place] Rate: 46 P: 49 [place]: 152 QRS: -22 QRSD: 98 T: -3 QT: 517 QTc: 453 Interpretive Statements SINUS BRADYCARDIA BORDERLINE T WAVE ABNORMALITY- INFERIOR LEADS PROLONGED QT INTERVAL ABNORMAL ECG Electronically Signed On 02-14-2022 16:47:08 CDT by Danis Beal D.O.
--- NOTE | 2022-02-14 12:11 | PM.CNCAR ---
Assessment and Plan Assessment and plan (1) Ventricular tachycardia: Code(s): I47.2 - Ventricular tachycardia Status: Acute Plan 61-year-old man with: Nonsustained ventricular arrhythmias that were noticed on telemetry in the emergency room yesterday. He was in the emergency room with a variety of complaints he was describing some left axillary and left arm discomfort at that time. His ECG did not show any evidence of acute myocardial injury. Troponin levels were not done and he is admitted to the hospital for further evaluation of this. He reports a history of ascending aortic aneurysm which was not large about 8 months ago but no other cardiac pathology. He is asymptomatic with regard to those issues at this time. I am going to request troponin level to be done stat as well as a follow-up ECG at this time. Further recommendations will be pending review of those. Kishan Daley MD [facility] History of Present Illness History of Present Illness Consult date/time: 02/14/22 12:11 Reason For Visit: nonsustained Vtach,hypokalemia,uncontrolled hypert Narrative: This is a 61-year-old man I am seeing at the request of the hospitalist because of ventricular arrhythmias the noticed on telemetry when he was in the emergency room yesterday evening. He came to the emergency room because of feeling unwell yesterday the original notes in the emergency room indicated that his chief complaint was dark stool and there was concern about the possibility of GI bleeding. The notes in the chart are inconsistent in terms of his chief complaints. Neither of those notes indicate any complaints of chest pain. The patient states that he has chronic significant central back pain for a number of years after a fall as a young man. Yesterday he was having pain that was different than this up into the region of the left axilla and into the left arm. He came to the emergency room for evaluation where he on telemetry it was noticed that he had several episodes of nonsustained ventricular tachycardia. His electrocardiogram did not show any serious ST or T-wave abnormalities but he was having PVCs on that ECG as well. He was admitted for further evaluation and management. Because of the arrhythmias I was asked to see him in consultation. According to the nurse in IMU he has been in sinus bradycardia since arrival here without any arrhythmias up on the floor. The patient did not have any troponin level sampled since being admitted to the hospital. He states that the axillary and arm pain that he was describing yesterday is no longer present he continues to have his central thoracic back pain that has been a chronic issue for a number of years otherwise he does not have any complaints currently. 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 He states that he sees a iron worker foreman because he was found serendipitous lead to be having a ascending aortic annular which was not serious at 4.3 cm in size the something that should be followed longitudinally. He reports that his iron worker foreman did perform an echocardiogram and to his best of his knowledge that was unremarkable. According to the patient there is a family history of aortic aneurysms but no family history of coronary disease of which he can recall. He has a history of hypertension no significant dyslipidemia or diabetes. His medical regimen consists of losartan and metoprolol. Importantly he also states that he had a hemorrhagic CVA about 6 or 7 years ago. He describes having had a cerebral angiogram being done at that time he can not recall the details of that finding. Since his stroke he states he has a poor memory. Review of Systems Constitutional: Constitutional: Reports lethargy Eyes: Eyes: Reports no additional eye complaints ENT:
[2022-02-14 12:51] LABS: Troponin I < 0.012 ng/mL (0.000-0.034)
--- NOTE | 2022-02-14 14:02 | PCNSR ---
On 02/14/22, the student, Nirav Tapia, provided care and completed [facility] documentation on this patient. I have reviewed the student's documentation and agree with the findings.
--- NOTE | 2022-02-14 15:45 | PC.NURSE ---
Updated daughter, Lisa, on patient condition and plan of care.
--- NOTE | 2022-02-14 16:17 | PM.IMPN ---
Progress Note: A&P Assessment and Plan (1) Non-sustained ventricular tachycardia: Code(s): I47.2 - Ventricular tachycardia Status: Acute Assessment and Plan: appreciate cardiology consultation, metoprolol increased to 50 mg, monitor telemetry Plan # diarrhea from laxatives # dark stools? # abdominal pain, nonspecific -Patient is on laxatives for opioid induced constipation, holding all laxatives Colace - hemoglobin stable 14, will recheck in a.m., appears to be stable - CT scan does not have any acute findings to explain his abdominal, continue supportive care - IV Protonix started daily - with hemoglobin stable, hypertensive, patient does not appear to GI bleed, no frequent bowel movements - pain control: P.r.n. dilaudid, Tylenol # unintentional weight loss? - patient had colonoscopy last couple years without concerns for cancer - no respiratory symptoms, does not smoke cigarettes, he smoked when he was a teenager but stopped age 19 - no significant family cancer history - no medications explain his weight loss - he will need to follow-up with his PCP for his weight changes # other chronic conditions - anxiety/ depression, PTSD: Continue home BuSpar, divalproex, sertraline, p.r.n. Atarax - insomnia: Continue trazodone - essential hypertension: Continue Cozaar, metoprolol, patient is still very hypertensive despite does - may continue home multivitamin Diet: Heart healthy DVT prophylaxis: SCDs, holding chemoprophylaxis for possible bleed GI prophylaxis: Protonix Code status: Full code Disposition: Observation, likely home in 1-2 days Subjective Date/time seen: 02/14/22 16:17 Interval history: No chest pain or shortness of breath.? No nausea, vomiting or diarrhea.? No fevers or chills. Review of Systems Review of Systems: ? 12 point review of systems was assessed and was negative except as noted in the HPI Exam Narrative: ?General:??No acute distress, alert and oriented per baseline HEENT:? Atraumatic, normocephalic, mucous membranes moist CV:? ?irregularly irregular Lungs:? Clear to auscultation bilaterally, no rales or crackles noted, no wheezes, good air entry Abdomen:? Soft, nontender, nondistended Extremities:? Normal to inspection Skin:? No rashes noted, no lesions or wounds seen Psych:? Euthymic, normal affect Objective Data Vital Signs Vital Signs: Vital Signs - 24 hr 02/13/22 16:30 02/13/22 16:46 02/13/22 16:47 Temperature Pulse Rate 54 L 56 L 67 Respiratory Rate 19 18 27 H Blood Pressure 218/115 H Pulse Oximetry 100 100 100 Oxygen Delivery 02/13/22 16:49 02/13/22 16:50 02/13/22 17:11 Temperature Pulse Rate 59 L 53 L Respiratory Rate 17 17 Blood Pressure 202/110 H Pulse Oximetry 100 100 100 Oxygen Delivery 02/13/22 17:15 02/13/22 17:46 02/13/22 18:10 Temperature Pulse Rate 87 47 L 91 Respiratory Rate 22 H 20 19 Blood Pressure Pulse Oximetry 100 100 Oxygen Delivery 02/13/22 18:17 02/13/22 18:30 02/13/22 18:45 Temperature Pulse Rate 52 L 65 61 Respiratory Rate 17 19 19 Blood Pressure Pulse Oximetry 100 100 100 Oxygen Delivery 02/13/22 19:19 02/13/22 20:58 02/13/22 21:07 Temperature 98.8 F Pulse Rate 62 57 L 56 L Respiratory Rate 16 20 16 Blood Pressure 175/91 H 173/91 H 166/90 H Pulse Oximetry 99 96 99 Oxygen Delivery 02/13/22 22:00 02/13/22 22:00 02/14/22 00:00 Temperature Pulse Rate 56 L Respiratory Rate Blood Pressure Pulse Oximetry Oxygen Delivery Room Air Room Air 02/14/22 00:00 02/13/22 21:13 02/14/22 00:00 Temperature 97.6 F Pulse Rate 54 L 56 L 54 L Respiratory Rate 12 Blood Pressure 145/88 H Pulse Oximetry 98 Oxygen Delivery 02/14/22 02:00 02/14/22 04:32 02/14/22 04:00 Temperature 98.2 F Pulse Rate 46 L 45 L 44 L Respiratory Rate 20 Blood Pressure 125/69 Pulse Oximetry 97 Oxygen Delivery 02/14/22 04:00
[2022-02-15] VITALS (17 sets, daily range): BP systolic 143–181; BP diastolic 74–92; PULSE 38–67; RESP 16–22; TEMP 36.3–36.8; O2SAT 98–100
[2022-02-15] MEDS: PANTOPRAZOLE SODIUM IV 40 MG VIAL IV PUSH (08:50)
[2022-02-15] MEDS: MULTIVITAMINS /C LUTEIN (CENTRUM SILVER) TABLET *BKC 1 TAB PO (08:51)
[2022-02-15] MEDS: busPIRone HCL 10 MG TABLET PO ×4 (08:52→22:00)
[2022-02-15] MEDS: SERTRALINE HCL 50 MG TABLET 150 MG PO (08:52)
[2022-02-15] MEDS: hydrOXYzine HCL 25 MG TABLET 50 MG PO ×4 (08:52→22:00)
[2022-02-15] MEDS: DIVALPROEX SODIUM ER 250 MG TAB.24H PO ×3 (08:53→17:12)
[2022-02-15] MEDS: HYDROmorphone HCL INJ (*CRX) 1 MG/ML SYR 0.5 MG IV PUSH ×3 (09:01→20:55)
--- NOTE | 2022-02-15 09:07 | PC.NURSE ---
Updated Dr. Brown on BP and HR. Will recheck vitals at 0930 after IVP Dilaudid dose and re-evaluate vitals.
[2022-02-15] MEDS: METOPROLOL SUCCINATE EXT REL 25 MG TABCR PO (10:58)
--- NOTE | 2022-02-15 12:55 | PM.IMPN ---
Progress Note: A&P Assessment and Plan (1) Non-sustained ventricular tachycardia: Code(s): I47.2 - Ventricular tachycardia Status: Acute Assessment and Plan: appreciate cardiology consultation, metoprolol increased to 50 mg, monitor telemetry (2) Diarrhea: Code(s): R19.7 - Diarrhea, unspecified Status: Acute Assessment and Plan: likely from laxatives, improved Plan anxiety/depression, PTSD: Continue home BuSpar, divalproex, sertraline, p.r.n. Atarax insomnia: Continue trazodone essential hypertension: Continue Cozaar, metoprolol Diet: Heart healthy DVT prophylaxis: SCDs GI prophylaxis: Protonix Code status: Full code Disposition: Observation Subjective Date/time seen: 02/15/22 12:55 Interval history: Patient lying with his eye mask over his face and states he is feeling sleepy. No overnight events noted.? No chest pain or shortness of breath.? No nausea, vomiting or diarrhea.? No fevers or chills. Review of Systems Review of Systems: ? 12 point review of systems was assessed and was negative except as noted in the HPI Exam Narrative: General:??No acute distress, alert and oriented per baseline HEENT:? Atraumatic, normocephalic, mucous membranes moist CV:? Regular rate and rhythm, S1, S2 Lungs:? Clear to auscultation bilaterally, no rales or crackles noted, no wheezes, good air entry Abdomen:? Soft, nontender, nondistended Extremities:? Normal to inspection Skin:? No rashes noted, no lesions or wounds seen Psych:? Euthymic, normal affect Objective Data Vital Signs Vital Signs: Vital Signs - 24 hr 02/14/22 14:00 02/14/22 16:00 02/14/22 16:00 Temperature 98.2 F Pulse Rate 42 L 51 L 52 L Respiratory Rate 16 Blood Pressure 130/80 Pulse Oximetry 99 Oxygen Delivery 02/14/22 18:00 02/14/22 16:00 02/14/22 20:00 Temperature 98.2 F Pulse Rate 55 L 48 L Respiratory Rate 20 Blood Pressure 127/77 Pulse Oximetry 99 98 Oxygen Delivery Room Air 02/14/22 20:00 02/14/22 20:00 02/14/22 21:37 Temperature Pulse Rate 48 L 49 L 52 L Respiratory Rate 20 Blood Pressure Pulse Oximetry 98 Oxygen Delivery Room Air 02/14/22 23:34 02/14/22 23:51 02/15/22 00:00 Temperature 97.7 F Pulse Rate 43 L 43 L 38 L Respiratory Rate 20 20 Blood Pressure 149/75 H Pulse Oximetry 100 100 Oxygen Delivery Room Air 02/15/22 02:00 02/15/22 04:00 02/15/22 04:00 Temperature 97.9 F Pulse Rate 42 L 40 L 40 L Respiratory Rate 20 20 Blood Pressure 154/74 H Pulse Oximetry 100 100 Oxygen Delivery Room Air 02/15/22 04:00 02/15/22 05:57 02/15/22 08:00 Temperature 98 F Pulse Rate 38 L 41 L 51 L Respiratory Rate 16 Blood Pressure 181/91 H Pulse Oximetry 99 Oxygen Delivery 02/15/22 08:00 02/15/22 08:00 02/15/22 09:29 Temperature Pulse Rate 67 66 Respiratory Rate Blood Pressure 168/92 H Pulse Oximetry 99 Oxygen Delivery Room Air 02/15/22 10:00 02/15/22 10:58 02/15/22 12:00 Temperature 97.8 F Pulse Rate 57 L 62 55 L Respiratory Rate 20 Blood Pressure 165/80 H Pulse Oximetry 99 Oxygen Delivery 02/15/22 12:00 02/15/22 12:00 Temperature Pulse Rate 55 L Respiratory Rate Blood Pressure Pulse Oximetry 99 Oxygen Delivery Room Air Intake/Output Intake/Output: Intake & Output 02/12/22 02/13/22 02/14/22 02/15/22 23:59 23:59 23:59 23:59 Intake Total 2370 220 Output Total 1170 1275 Balance 1200 -1055 Meds/Results Medications: Active Medications Generic Name Dose Route Start Last Admin Trade Name Freq PRN Reason Stop Dose Admin Acetaminophen 650 mg 02/13/22 23:44 02/14/22 00:05 Acetaminophen 325 Mg Tablet PO 650 mg Q4H PRN Administration Mild Pain (1-3) or Fever Buspirone HCl 10 mg 02/13/22 23:40 02/15/22 12:35 Buspirone Hcl 10 Mg Tablet PO 10 mg QID SALVADOR Administration Divalproex Sodium 250 mg 02/13/22 23:
[2022-02-15] MEDS: traZODone HCL 50 MG TABLET 100 MG PO (22:00)
[2022-02-16] VITALS (15 sets, daily range): BP systolic 115–177; BP diastolic 60–90; PULSE 41–57; RESP 16–20; TEMP 35.8–36.9; O2SAT 98–100; BMI 24.8
[2022-02-16] MEDS: HYDROmorphone HCL INJ (*CRX) 1 MG/ML SYR 0.5 MG IV PUSH ×3 (02:54→13:04)
[2022-02-16] MEDS: PANTOPRAZOLE SODIUM IV 40 MG VIAL IV PUSH (08:45)
[2022-02-16] MEDS: DIVALPROEX SODIUM ER 250 MG TAB.24H PO ×3 (08:45→16:58)
[2022-02-16] MEDS: busPIRone HCL 10 MG TABLET PO ×4 (08:46→20:14)
[2022-02-16] MEDS: hydrOXYzine HCL 25 MG TABLET 50 MG PO ×4 (08:46→20:14)
[2022-02-16] MEDS: MULTIVITAMINS /C LUTEIN (CENTRUM SILVER) TABLET *BKC 1 TAB PO (08:47)
[2022-02-16] MEDS: METOPROLOL SUCCINATE EXT REL 25 MG TABCR PO (08:47)
[2022-02-16] MEDS: SERTRALINE HCL 50 MG TABLET 150 MG PO (08:48)
--- NOTE | 2022-02-16 09:32 | PM.IMPN ---
Progress Note: A&P Assessment and Plan (1) Non-sustained ventricular tachycardia: Code(s): I47.2 - Ventricular tachycardia Status: Acute Assessment and Plan: appreciate cardiology consultation, metoprolol increased to 50 mg, monitor telemetry 02/16: Telemetry has shown sinus bradycardia (2) Diarrhea: Code(s): R19.7 - Diarrhea, unspecified Status: Acute Assessment and Plan: likely from laxatives, improved 02/16: Resolved (3) Tremor: Code(s): R25.1 - Tremor, unspecified Status: Acute Assessment and Plan: 02/16: Neuro consult for what appears to be an intention tremor, brain MRI was done at [facility] about a week ago, records have been requested and are pending, he does have an outpatient appointment with neurology consultation in April and is wondering if he can go on a medication for his tremor sooner than that as he can not even feed himself sometimes due to this significant tremor Plan anxiety/depression, PTSD: Continue home BuSpar, divalproex, sertraline, p.r.n. Atarax insomnia: Continue trazodone essential hypertension: Continue Cozaar, metoprolol Diet: Heart healthy DVT prophylaxis: SCDs GI prophylaxis: Protonix Code status: Full code Disposition: Observation Subjective Date/time seen: 02/16/22 09:32 Interval history: Patient states he feels about the same as yesterday, maybe slightly better.? patient states he has had intention tremors that appear to be worsening, he is concerned he might have Parkinson's. He has an appointment with a neurologist that was arranged by his PCP in April, but is wondering if he can go on a medication for this sooner as he is having difficulty even feeding himself due to the severity of the intention tremor. No overnight events noted.? No chest pain or shortness of breath.? No nausea, vomiting or diarrhea.? No fevers or chills. Review of Systems Review of Systems: ? 12 point review of systems was assessed and was negative except as noted in the HPI Exam Narrative: General:??No acute distress, alert and oriented per baseline HEENT:? Atraumatic, normocephalic, mucous membranes moist CV:? Regular rate and rhythm, S1, S2 Lungs:? Clear to auscultation bilaterally, no rales or crackles noted, no wheezes, good air entry Abdomen:? Soft, nontender, nondistended Extremities:? Normal to inspection Skin:? No rashes noted, no lesions or wounds seen Psych:? Euthymic, normal affect Objective Data Vital Signs Vital Signs: Vital Signs - 24 hr 02/15/22 10:00 02/15/22 10:58 02/15/22 12:00 Temperature 97.8 F Pulse Rate 57 L 62 55 L Respiratory Rate 20 Blood Pressure 165/80 H Pulse Oximetry 99 Oxygen Delivery 02/15/22 12:00 02/15/22 12:00 02/15/22 13:20 Temperature Pulse Rate 55 L Respiratory Rate Blood Pressure Pulse Oximetry 99 99 Oxygen Delivery Room Air Room Air 02/15/22 14:00 02/15/22 16:00 02/15/22 16:00 Temperature 98.3 F Pulse Rate 57 L 56 L Respiratory Rate 22 H Blood Pressure 171/81 H Pulse Oximetry 99 98 Oxygen Delivery Room Air 02/15/22 16:00 02/15/22 18:00 02/15/22 20:00 Temperature 97.3 F L Pulse Rate 57 L 56 L 62 Respiratory Rate 20 Blood Pressure 143/81 H Pulse Oximetry 99 Oxygen Delivery 02/15/22 20:00 02/15/22 20:00 02/15/22 21:34 Temperature Pulse Rate 62 61 58 L Respiratory Rate 20 Blood Pressure Pulse Oximetry 99 Oxygen Delivery Room Air 02/15/22 23:21 02/15/22 23:22 02/16/22 00:00 Temperature 97.8 F Pulse Rate 52 L 52 L 44 L Respiratory Rate 20 20 Blood Pressure 148/86 H Pulse Oximetry 98 98 Oxygen Delivery Room Air 02/16/22 01:26 02/16/22 03:21 02/16/22 03:10 Temperature 97.2 F L Pulse Rate 51 L 47 L 47 L Respiratory Rate 20 20 Blood Pressure 177/90 H Pulse Oximetry 98 98 Oxygen Delivery Room Air 02/16/22 04:00 02/16/22 05:24 02/16/22 08:00 Temperature 9
--- NOTE | 2022-02-16 12:30 | WPDNEURCNPN ---
Assessment and Plan Assessment and plan (1) Tremor: Code(s): R25.1 - Tremor, unspecified Status: Acute Plan neuro consultation was obtained for the ongoing history of tremor for which he has been seen by the other physician as well and has an appointment as an outpatient and wants to try the treatment at this stage is in the hospital for other recent we can try primidone 50 mg at night Consult date: 02/16/22 Time Seen: 11:30 HPI: Jose Maxwell is a 61 year old male admitted to the hospital through the emergency room for GI bleed in addition to ongoing history of chronic pain, anxiety with depression, history of change in the pain pump last year resulting in the worsening of the pain control and also ongoing history of diarrhea home medications particularly included divalproex 250 mg 3 times a day ferrous sulfate 325 mg daily hydroxyzine 50 mg q.i.d. sertraline 150 mg daily and trazodone 100 mg at night , past history consistent with chronic back pain, anxiety with depression, and history of renal stones in addition to gastric bypass surgery and never being a smoker never alcohol intake initial exam in the emergency room was unremarkable except when he was in CT scan he was noted to have runs of V-tach and complained of dizziness he was also found to have mild hypokalemia and he was hospitalized for further management Dr. Paulino was consulted in the ER his routine lab studies were done potassium was 3.2 bilirubin 1.4 chest x-ray negative and a CT scan documented mild emphysema, left atrial enlargement of the heart, subcutaneous pump in left abdomen with intrathecal catheter, chronic compression fracture of L1 on L2 with hemangioma at L3 vertebral body and mild thoracolumbar spondylosis, patient was seen by Dr. Daley troponin levels were normal metoprolol dosage was decreased to50mg daily and angiogram not suggested a former smoker never alcohol intake Review of Systems Review of Systems: All systems reviewed & are unremarkable except as noted in HPI and below PMFSH Past Medical History Medical History Chronic back pain History of anxiety History of depression History of sleep apnea Kidney stone Surgical History Surgical History History of appendectomy History of gastric bypass History of tonsillectomy Family History Family History Father Family history of emphysema, Onset Age: 40 Mother Bone marrow disease Sibling Heart disease Liver failure Other Family history of arthritis Social History Social History Smoking status: Former smoker Tobacco type: cigarettes Alcohol intake: never Substance use: current Substance use type: marijuana Other substance usage details: medicinal marijuana Last use: 02/12/22 Spiritual care concerns: No Meds Home Medications and Allergies Home Medications Medication Instructions Recorded Confirmed Type Alive Men's 50 Plus Multivit 1 dose BYMOUTH DAILY 09/26/21 02/13/22 History divalproex 250 mg tablet,extended 250 mg PO TID 09/26/21 02/13/22 History release 24 hr hydroxyzine HCl 50 mg tablet 50 mg PO QID 09/26/21 02/13/22 History sertraline 100 mg tablet 100 mg PO DAILY 09/26/21 02/13/22 History sertraline 50 mg tablet 50 mg PO DAILY 09/26/21 02/13/22 History trazodone 100 mg tablet 100 mg PO HS 09/26/21 02/13/22 History buspirone 10 mg tablet 10 mg PO QID 02/13/22 02/13/22 History losartan 100 mg tablet 100 mg PO DAILY 02/13/22 02/13/22 History metoprolol succinate 25 mg 25 mg PO DAILY 02/13/22 02/13/22 History tablet,extended release 24 hr IV equipment 02/15/22 02/15/22 History Allergies Allergy/AdvReac Type Severity Reaction Status Date / Time No Known Allergies Allergy Verified 11/09/21 18
--- NOTE | 2022-02-16 16:45 | PC.NURSE ---
This patient, Jose Maxwell, was transferred via bed to [facility] without issues on 02/16/22 at 1635. Personal belongings sent with patient. Report given to EM Simons. Appropriate documentation sent with patient.
[2022-02-16] MEDS: PRIMIDONE 50 MG TABLET PO (20:14)
[2022-02-16] MEDS: traZODone HCL 50 MG TABLET 100 MG PO (20:16)
--- NOTE | 2022-02-17 02:40 | PCRCNOTE ---
pt refused CPAP @ 11PM AND 2AM for tonmarika
[2022-02-17 03:01] VITALS: BP 120/66; PULSE 54; RESP 16; TEMP 36.9; O2SAT 100
[2022-02-17 06:09] LABS: Basophils Percent Auto 0.7 % (0.2-1.2); Eosinophils Absolute Auto 0.4 K/mm3 (0-0.3); Eosinophils Percent Auto 6.7 % (0-4.4); Hematocrit 35.9 % (42.0-52.0); Hemoglobin 12.3 g/dL (14.0-18.0); Immature Granulocyte Absolute 0.02 K/mm3 (0.00-0.031); Immature Granulocyte Percent A 0.3 % (0-0.5); Mean Corpuscular HGB Conc 34.3 g/dl (32-36); Mean Corpuscular Hemoglobin 32.3 pg (26-34); Mean Corpuscular Volume 94.2 fl (80-100); Mean Platelet Volume 9.4 fl (7.4-10.4); Monocytes Absolute Auto 0.6 K/mm3 (0.1-0.6); Monocytes Percent Auto 9.9 % (2.6-8.5); Neutrophils Percent Auto 50.4 % (45.5-73.1); Platelet Count Result 124 k/mm3 (150-375); Red Blood Count 3.81 M/mm3 (4.6-6.20); Red Cell Distribution Width 14.2 % (11.5-14.5); White Blood Count 5.9 K/mm3 (4.5-10.0)
[2022-02-17 06:17] LABS: Alanine Aminotransferase 16 U/L (6-50); Albumin Level 3.4 g/dL (3.5-5.1); Alkaline Phosphatase 63 U/L (38-126); Anion Gap 9 mmol/L (8-16); Aspartate Amino Transferase 24 U/L (17-59); Bilirubin,Total 0.7 mg/dL (0.2-1.3); Blood Urea Nitrogen 13 mg/dL (9-20); Calcium 7.9 mg/dL (8.4-10.2); Carbon Dioxide 20 mmol/L (22-30); Chloride 106 mmol/L (98-107); Estimated CRCL calculation 78 ml/min; Estimated Glomerular Filt Rate > 60; Glucose 81 mg/dL (65-110); Potassium 4.1 mmol/L (3.4-5.0); Sodium 135 mmol/L (137-145)
[2022-02-17] MEDS: busPIRone HCL 10 MG TABLET PO (08:38)
[2022-02-17] MEDS: DIVALPROEX SODIUM ER 250 MG TAB.24H PO (08:38)
[2022-02-17] MEDS: hydrOXYzine HCL 25 MG TABLET 50 MG PO (08:39)
[2022-02-17] MEDS: MULTIVITAMINS /C LUTEIN (CENTRUM SILVER) TABLET *BKC 1 TAB PO (08:39)
[2022-02-17] MEDS: PANTOPRAZOLE SODIUM IV 40 MG VIAL IV PUSH (08:39)
[2022-02-17] MEDS: SERTRALINE HCL 50 MG TABLET 150 MG PO (08:41)
[2022-02-17 08:43] VITALS: PULSE 54
[2022-02-17] MEDS: METOPROLOL SUCCINATE EXT REL 25 MG TABCR PO (08:43)
--- NOTE | 2022-02-18 18:40 | PM.DS ---
DS: Admitting Diagnosis Discharge Date 02/17/22 Admitting Diagnosis Dizziness with episode of V-tach DS: Discharge Diagnosis Discharge Diagnosis (1) Non-sustained ventricular tachycardia: Code(s): I47.2 - Ventricular tachycardia Status: Acute Assessment and Plan: appreciate cardiology consultation, metoprolol increased to 50 mg, monitor telemetry 02/16: Telemetry has shown sinus bradycardia (2) Diarrhea: Code(s): R19.7 - Diarrhea, unspecified Status: Acute Assessment and Plan: likely from laxatives, improved 02/16: Resolved (3) Tremor: Code(s): R25.1 - Tremor, unspecified Status: Acute Assessment and Plan: 02/16: Neuro consult for what appears to be an intention tremor, brain MRI was done at [facility] about a week ago, records have been requested and are pending, he does have an outpatient appointment with neurology consultation in April and is wondering if he can go on a medication for his tremor sooner than that as he can not even feed himself sometimes due to this significant tremor 02/17: Neurology consulted, recommended trying primidone 50 mg q.h.s., outpatient follow-up as planned Plan anxiety/depression, PTSD: Continue home BuSpar, divalproex, sertraline, p.r.n. Atarax insomnia: Continue trazodone essential hypertension: Continue Cozaar, metoprolol Diet: Heart healthy DVT prophylaxis: SCDs GI prophylaxis: Protonix Code status: Full code Disposition: Observation DS: Summary Hospital Course Hospital Course: 61-year-old male past medical history significant for chronic pain with a pain pump, anxiety depression, PTSD, insomnia hypertension is presenting with dizzy spells and dark stools. He also had an episode of nonsustained V-tach in the ER. Cardiology was consulted and increased his metoprolol, telemetry is otherwise unremarkable. Hemoglobin remained stable while he was here on a PPI. Therefore, GI was not consulted, no GI bleed noted. Patient was overdoing it on laxatives this was probably contributing to the diarrhea and dark stool may have been secondary to hemorrhoids, completely resolved during his entire stay here. See above for details. Time Spent with Patient Time attestation: Total time spent providing and/or coordinating discharge services: Exam Narrative: General:??No acute distress, alert and oriented per baseline HEENT:? Atraumatic, normocephalic, mucous membranes moist CV:? Regular rate and rhythm, S1, S2 Lungs:? Clear to auscultation bilaterally, no rales or crackles noted, no wheezes, good air entry Abdomen:? Soft, nontender, nondistended Extremities:? Normal to inspection Skin:? No rashes noted, no lesions or wounds seen Psych:? Euthymic, normal affect Discharge Plan Discharge Attending physician on discharge: Idalmis Brown Consulting providers: Justin Paulino ; Magan Lomas Discharging Clinician: Idalmis Brown Patient Disposition: Home, Self-Care Activity: as tolerated Diet: as tolerated Patient Instructions: Antibiotic Form Stand Alone Forms: General Discharge Information Follow-up/Referrals: Justin Paulino MD [Physician] - Esa,DO Ayan [Primary Care Provider] - Magan Lomas MD [Physician] - Discharge Medications: New primidone [Mysoline] 50 mg Tablet 50 mg PO HS 30 Days Qty: 30 0RF primidone 50 mg tablet 50 mg PO HS Qty: 30 0RF Continued buspirone 10 mg Tablet 10 mg PO QID metoprolol succinate 25 mg Tablet Extended Release 24 Hr 25 mg PO DAILY losartan 100 mg Tablet 100 mg PO DAILY (DME) IV equipment Misc MISCELLANEOUS Rx Instructions: Basal Rate: Morphine 219 mcg/hr, Clonidine 82.7mcg/day, Bupivacaine 2100 mcg/hr Alive Men's 50 Plus Multivit 1 dose BYMOUTH DAILY sertraline 100 mg tablet 100 mg PO DAILY hydroxyzine HCl 50 mg tablet 50 mg PO QID trazodone 100 mg t
== END 2022-02-17 09:42 | disposition home or self-care (01) ==
LOC: ANHED 19:56 → ANHIMU 20:31 → ANH3MED 02-16 16:33
PROVIDERS: Emergency Medicine; Specialist; Admitting Provider Family Medicine; Emergency Provider General Practice; PCP Student in an Organized Health Care Education/Training Program; Visit Provider Student in an Organized Health Care Education/Training Program
DX: I47.2 Ventricular tachycardia (principal); R19.7 Diarrhea, unspecified; R25.1 Tremor, unspecified; F43.10 Post-traumatic stress disorder, unspecified; G47.00 Insomnia, unspecified; I10 Essential (primary) hypertension; K92.1 Melena; K92.2 Gastrointestinal hemorrhage, unspecified; I71.2 Thoracic aortic aneurysm, without rupture; G89.29 Other chronic pain; Z97.8 Presence of other specified devices; F41.9 Anxiety disorder, unspecified; F32.A Depression, unspecified; R11.0 Nausea; R10.9 Unspecified abdominal pain; M54.89 Other dorsalgia; G47.33 Obstructive sleep apnea (adult) (pediatric); R00.1 Bradycardia, unspecified; I45.10 Unspecified right bundle-branch block; T40.605A Adverse effect of unspecified narcotics, initial encounter; K59.03 Drug induced constipation; R94.31 Abnormal electrocardiogram [ECG] [EKG]; R63.4 Abnormal weight loss; K64.9 Unspecified hemorrhoids; Z20.822 Contact with and (suspected) exposure to COVID-19; Z90.49 Acquired absence of other specified parts of digestive tract; Z87.442 Personal history of urinary calculi; Z98.84 Bariatric surgery status; Z87.891 Personal history of nicotine dependence; F12.90 Cannabis use, unspecified, uncomplicated; Z79.899 Other long term (current) drug therapy
CPT/HCPCS: 36415; 71045; 74174; 80053; 81001; 83605; 83735; 84484; 85025; 85610; 85730; 86850; 86900; 86901; 93005; 96374; 96375; 96376; 99285; A9270; C9113; C9803; G0378; J0360; J1170; Q9967; U0003; U0005

== ENCOUNTER 2022-12-19 14:40 | Emergency (ER) | payer MEDICARE, SELFPAY ==
[2022-12-19 14:50] VITALS: BP 116/51; PULSE 53; RESP 12; TEMP 36.8; O2SAT 100
--- NOTE | 2022-12-19 14:50 | ED.WOUNDLAC ---
HPI - Wound/Laceration General Chief Complaint: Skin/Abscess/Foreign Body Stated Complaint: lump on back Time Seen by Provider: 12/19/22 14:55 Source: patient Mode of arrival: ambulatory Limitations: no limitations History of Present Illness HPI narrative: 62 y/o male presented for c/o red painful lump to left mid/upper back getting bigger over the last week. States it was looked at by his neurologist but has not had treatment. has pressed on the site but has not applied anything to the site. Denies any other lesions. No drainage or itching. Site is tender. Scheduled with pcp in 10 days. Related Data Home Medications Medication Instructions Recorded Confirmed Alive Men's 50 Plus Multivit 1 dose BYMOUTH DAILY 09/26/21 12/19/22 divalproex 250 mg tablet,extended 250 mg PO TID 09/26/21 12/19/22 release 24 hr hydroxyzine HCl 50 mg tablet 50 mg PO QID 09/26/21 12/19/22 sertraline 100 mg tablet 100 mg PO DAILY 09/26/21 12/19/22 sertraline 50 mg tablet 50 mg PO DAILY 09/26/21 12/19/22 trazodone 100 mg tablet 100 mg PO HS 09/26/21 12/19/22 buspirone 10 mg tablet 10 mg PO QID 02/13/22 12/19/22 metoprolol succinate 25 mg 25 mg PO DAILY 02/13/22 12/19/22 tablet,extended release 24 hr Pain Pump 12/19/22 methocarbamol 750 mg tablet 750 mg PO BID 12/19/22 12/19/22 sucralfate 100 mg/mL oral 10 ml PO QID 12/19/22 12/19/22 suspension zonisamide 25 mg capsule 25 mg PO DAILY 12/19/22 12/19/22 Allergies Allergy/AdvReac Type Severity Reaction Status Date / Time No Known Allergies Allergy Verified 12/19/22 14:45 Review of Systems Review of Systems: CONSTITUTIONAL: Denies body aches, fever, chills, or sweats. EYES: Denies visual changes, redness, or discharge. ENT: Denies rhinorrhea, congestion CARDIOVASCULAR: Denies chest pain, palpitations, or edema. RESPIRATORY: Denies cough or dyspnea. GASTROINTESTINAL: Denies abdominal pain, nausea, vomiting, or diarrhea. SKIN: reports red painful lump to back MUSCULOSKELETAL: Denies back pain, joint pain, or myalgia. NEUROLOGIC: Denies headache, numbness, tingling, or weakness. [facility] Past Medical History Medical History Chronic back pain History of anxiety History of depression History of sleep apnea Kidney stone Surgical History Surgical History History of appendectomy History of gastric bypass History of tonsillectomy Family History Family History Father Family history of emphysema, Onset Age: 40 Mother Bone marrow disease Sibling Heart disease Liver failure Other Family history of arthritis Social History Social History Smoking status: Former smoker Tobacco type: cigarettes Alcohol intake: never Substance use: current Substance use type: marijuana Other substance usage details: medicinal marijuana Last use: 02/12/22 Spiritual care concerns: No Comments At time of signature, I have reviewed and agree with nursing past medical, surgical, social and family history unless otherwise noted. Please see nursing chart for further information. There is no relevant family history pertinent to the presenting complaint Exam Narrative: GENERAL: Well-appearing HEAD: Normocephalic, atraumatic. EYES: conjunctivae clear, and EOMI. ENT: Mucous membranes moist. Oropharynx without edema, erythema or lesions. NECK: Supple. No lymphadenopathy CHEST: Clear to auscultation. HEART: Regular rate and rhythm. SKIN: Warm, dry. 3cm diameter abscess to left mid back, fluctuant center with mild erythema and tenderness NEURO: Alert and oriented x3. Course Course Emergency Course: Patient is aware of diagnosis, understands and agrees to treatment plan. Anticipatory guidance given. Patient agrees to fol
== END 2022-12-19 15:35 | disposition home or self-care (01) ==
PROVIDERS: Emergency Provider Nurse Practitioner Family; PCP Student in an Organized Health Care Education/Training Program
DX: L02.212 Cutaneous abscess of back [any part, except buttock and flank] (principal); Z87.891 Personal history of nicotine dependence; F41.9 Anxiety disorder, unspecified; F32.A Depression, unspecified; Z98.84 Bariatric surgery status
CPT/HCPCS: 10060; 99213; G0463

== ENCOUNTER 2022-12-21 10:01 | Emergency (ER) | payer MEDICARE, SELFPAY ==
[2022-12-21 10:08] VITALS: BP 156/89; PULSE 54; RESP 16; TEMP 36.6; O2SAT 100
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
== END 2022-12-21 10:30 | disposition home or self-care (01) ==
PROVIDERS: Emergency Provider Nurse Practitioner; PCP Student in an Organized Health Care Education/Training Program
DX: Z48.01 Encounter for change or removal of surgical wound dressing (principal); F41.9 Anxiety disorder, unspecified; F32.A Depression, unspecified
CPT/HCPCS: 99212; G0463

== ENCOUNTER 2023-01-02 19:40 | Emergency (ER) | payer MEDICARE, SELFPAY ==
--- NOTE | ~2023-01-02 | CT_ITS ---
EXAMINATION: CT abd pelvis lumbar w con INDICATION: Low back pain and left lower quadrant pain TECHNIQUE: Computed tomographic images of the abdomen, pelvis, and lumbar spine were obtained after t he administration of 100 cc of Omnipaque 350 intravenous contrast. The dose-length product (DLP) was 535.11 mGy-cm. Automated exposure control and iterative reconstruction technique were employed. COMPARISON: 02/13/2022 FINDINGS: Abdomen and pelvis: Minimal dependent atelectasis is present in the lung bases. The heart size is nor mal. The liver, spleen, pancreas, gallbladder, and adrenal glands are normal. There are surgical varghese ges in the stomach. The kidneys are unremarkable. No pathologically enlarged abdominal or pelvic lymp h nodes are identified. No free intraperitoneal gas or evidence of bowel obstruction. There is mild w all thickening of the urinary bladder which is incompletely distended. Lumbar spine: There are chronic compression fractures of L1 and L2. A hemangioma is noted in the L3 v ertebral body. No acute lumbar spine fracture is identified. The intervertebral disc spaces are maint ained. IMPRESSION: 1. Wall thickening of the urinary bladder which could reflect cystitis versus incomplete distention. 2. Chronic compression fractures of L1 and L2 without acute osseous abnormality of the lumbar spine. Reviewed, dictated and finalized at location F. IMPRESSION: 1. Wall thickening of the urinary bladder which could reflect cystitis versus i ncomplete distention. 2. Chronic compression fractures of L1 and L2 without acute osseous abnormality of the lumbar spine.
[2023-01-02 20:02] VITALS: BP 180/94; PULSE 65; RESP 20; TEMP 36.8; O2SAT 100
[2023-01-02 20:30] VITALS: BP 146/83; PULSE 72; RESP 16; O2SAT 100
[2023-01-02 20:35] VITALS: PULSE 53
[2023-01-02 20:56] LABS: Basophils Percent Auto 0.4 % (0.2-1.2); Eosinophils Absolute Auto 0.1 K/mm3 (0-0.3); Eosinophils Percent Auto 1.7 % (0-4.4); Hematocrit 31.9 % (42.0-52.0); Hemoglobin 10.4 g/dL (14.0-18.0); Immature Granulocyte Absolute 0.01 K/mm3 (0.00-0.031); Immature Granulocyte Percent A 0.2 % (0-0.5); Lymphocytes Absolute Auto 0.92 K/mm3 (0.9-3.2); Lymphocytes Percent Auto 19.7 % (18.3-44.2); Mean Corpuscular HGB Conc 32.6 g/dl (32-36); Mean Corpuscular Hemoglobin 29.2 pg (26-34); Mean Corpuscular Volume 89.6 fl (80-100); Mean Platelet Volume 10.2 fl (7.4-10.4); Monocytes Absolute Auto 0.5 K/mm3 (0.1-0.6); Monocytes Percent Auto 10.3 % (2.6-8.5); Neutrophils Absolute Auto 3.2 K/mm3 (1.3-6.7); Neutrophils Percent Auto 67.7 % (45.5-73.1); Platelet Count Result 135 k/mm3 (150-375); Red Blood Count 3.56 M/mm3 (4.6-6.20); Red Cell Distribution Width 15.5 % (11.5-14.5); White Blood Count 4.7 K/mm3 (4.5-10.0)
[2023-01-02 21:06] LABS: Alanine Aminotransferase 30 U/L (6-50); Albumin Level 3.9 g/dL (3.5-5.1); Alkaline Phosphatase 91 U/L (38-126); Anion Gap 8 mmol/L (8-16); Aspartate Amino Transferase 49 U/L (17-59); Bilirubin,Total 0.4 mg/dL (0.2-1.3); Blood Urea Nitrogen 11 mg/dL (9-20); Calcium 8.2 mg/dL (8.4-10.2); Carbon Dioxide 23 mmol/L (22-30); Chloride 107 mmol/L (98-107); Estimated CRCL calculation 85 ml/min; Estimated Glomerular Filt Rate > 60; Glucose 90 mg/dL (65-110); Potassium 4.1 mmol/L (3.4-5.0); Sodium 138 mmol/L (137-145)
[2023-01-02 21:22] LABS: Appearance Urine Cloudy (Clear); Bacteria Urine None Seen /hpf; Bilirubin Urine Negative (Negative); Blood Urine Negative (Negative); Color Urine Yellow (Yellow); Glucose Urine UA Negative (Negative); Ketones Urine Trace mg/dL (Negative); Leukocyte Esterase Ur Negative LEU/UL (Negative); Nitrate Urine Negative (Negative); Non Pathogenic Casts 0-2; Protein Urine Negative (Negative); RBC Urine 0-2 /hpf (0-2); Specific Grav Ur 1.019 (1.001-1.035); Squamous Epithelial Cell Urine None seen /hpf (Few); WBC Urine 0-5 /hpf; pH Urine 7.5 (5.0-9.0)
[2023-01-02 21:25] LABS: Add Urine Microscopic? YES
[2023-01-02 21:30] VITALS: BP 165/95; PULSE 51; RESP 18; O2SAT 99
[2023-01-02 22:00] VITALS: BP 184/91; PULSE 48; RESP 17; O2SAT 100
[2023-01-02 22:30] VITALS: BP 185/94; PULSE 46; RESP 16; O2SAT 100
[2023-01-02] MEDS: SODIUM CHLORIDE 0.9% IV 1,000 ML 999 ML IV CONT (22:37)
[2023-01-02] MEDS: MORPHINE SULFATE (*CRX) 4 MG/ML INJ IV PUSH (22:37)
[2023-01-02] MEDS: ONDANSETRON INJ 4 MG/2 ML VIAL IV PUSH (22:37)
[2023-01-02] MEDS: ACETAMINOPHEN 500 MG TABLET 1000 MG PO (22:53)
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
--- NOTE | 2023-01-02 23:15 | PC.NURSE ---
This RN assumed care of pt.
[2023-01-03] MEDS: KETOROLAC 30 MG/ML VIAL (*BKC) IV PUSH (00:44)
[2023-01-03 01:04] VITALS: BP 190/95; PULSE 47; RESP 10; O2SAT 99
== END 2023-01-03 01:06 | disposition home or self-care (01) ==
PROVIDERS: Emergency Medicine; Emergency Provider Physician Assistant; PCP Student in an Organized Health Care Education/Training Program
DX: M54.50 Low back pain, unspecified (principal); G89.29 Other chronic pain; G47.30 Sleep apnea, unspecified; F41.9 Anxiety disorder, unspecified; F32.A Depression, unspecified; Z87.442 Personal history of urinary calculi; Z87.891 Personal history of nicotine dependence; Z98.84 Bariatric surgery status; Z96.89 Presence of other specified functional implants; M48.56XA Collapsed vertebra, not elsewhere classified, lumbar region, initial encounter for fracture
CPT/HCPCS: 36415; 72132; 74177; 80053; 81001; 85025; 96361; 96374; 96375; 99284; A9270; J1885; J2270; J2405; J7030; Q9967

== ENCOUNTER 2023-02-13 05:45 | Emergency (ER) | payer MEDICARE, SELFPAY ==
[2023-02-13] VITALS (15 sets, daily range): BP systolic 129–168; BP diastolic 80–94; PULSE 41–59; RESP 11–20; O2SAT 95–100
--- NOTE | ~2023-02-13 | XR_ITS ---
Portable chest x-ray Comparison: 02/13/2022 Clinical History: Chest pain Findings: Lungs are clear, without focal consolidation or pleural effusion. Cardiomediastinal silho uette is stable. Bones and soft tissues are unremarkable. Impression: Clear lungs. Reviewed, dictated and finalized at location . Impression: Clear lungs.
--- NOTE | ~2023-02-13 | CT_ITS ---
Clinical Indication: Chest and abdominal pain CT Scan of the Chest, Abdomen, and Pelvis with Contrast: Technique: Contiguous sections were acquired throughout the chest, abdomen, and pelvis after intraven ous administration of 100 cc of Omnipaque 350. Dose reduction technique was used on this scan by tita lorenzana automated exposure control and iterative reconstruction technique. The dose-length product (DL P) was 729.99 mGy-cm. COMPARISON: 01/02/2023 Findings: There is no evidence of any significant mediastinal, hilar or axillary lymphadenopathy. The mediastin al soft tissues and vascular structures appear normal. There is no evidence of pleural or pericardial effusion. The lungs are clear. No pulmonary nodules or infiltrates are noted. The liver, spleen, pancreas, gallbladder, adrenals and kidneys are within normal limits. No evidence of aortic aneurysm. No lymphadenopathy. No bowel obstruction or bowel wall thickening. There is evidence of prior bariatric surgery. There is no evidence to suggest acute appendicitis. Urinary bladder is unremarkable. No pelvic mass seen. No ascites. Mild compression deformities of L1 and L2 are present. Impression: No acute abnormality evident. Chronic compression deformities of L1 and L2, unchanged. Reviewed, dictated and finalized at location . Impression: No acute abnormality evident. Chronic compression deformities of L1 and L2, unchanged.
[2023-02-13 07:57] LABS: Appearance Urine Clear (Clear); Bilirubin Urine Negative (Negative); Blood Urine Negative (Negative); Color Urine Yellow (Yellow); Glucose Urine UA Negative (Negative); Ketones Urine 2+ mg/dL (Negative); Leukocyte Esterase Ur Negative LEU/UL (Negative); Nitrate Urine Negative (Negative); Protein Urine Negative (Negative); Specific Grav Ur 1.021 (1.001-1.035); Urobilinogen Urine 0.2 mg/dL (<2.0)
[2023-02-13 08:08] LABS: Add Urine Microscopic? NO
[2023-02-13] MEDS: HYDROmorphone HCL INJ (*CRX) 1 MG/ML SYR IV PUSH (08:44)
[2023-02-13] MEDS: BELLADONNA ALK/PHENOB ELIX 10 ML, MAG HYDROX/ALUMINUM HYD/SIMETH 30 ML, LIDOCAINE HCL 2... PO (08:45)
[2023-02-13] MEDS: ACETAMINOPHEN 500 MG TABLET 1000 MG PO (08:53)
[2023-02-13 09:15] LABS: D Dimer 0.33 ug/mL (<0.48); INR 1.3; Partial Thromboplastin Time 28.9 SECONDS (22.3-36.8); Prothrombin Time 16.7 Seconds (11.1-14.7)
[2023-02-13 09:29] LABS: Lactic Acid 1.1 mmol/L (0.7-2.0)
[2023-02-13] MEDS: KETOROLAC 15 MG/ML VIAL (*BKC) IV PUSH ×2 (10:10→11:39)
[2023-02-13 10:33] LABS: Alanine Aminotransferase 42 U/L (6-50); Albumin Level 4.4 g/dL (3.5-5.1); Alkaline Phosphatase 104 U/L (38-126); Anion Gap 13 mmol/L (8-16); Aspartate Amino Transferase 47 U/L (17-59); Bilirubin,Total 0.9 mg/dL (0.2-1.3); Blood Urea Nitrogen 9 mg/dL (9-20); Calcium 9.2 mg/dL (8.4-10.2); Carbon Dioxide 16 mmol/L (22-30); Chloride 109 mmol/L (98-107); Estimated CRCL calculation 85 ml/min; Estimated Glomerular Filt Rate > 60; Glucose 105 mg/dL (65-110); Sodium 138 mmol/L (137-145); Troponin I < 0.012 ng/mL (0.000-0.034)
[2023-02-13 11:09] LABS: Hematocrit 36.5 % (42.0-52.0); Hemoglobin 11.9 g/dL (14.0-18.0); Mean Corpuscular HGB Conc 32.6 g/dl (32-36); Mean Corpuscular Hemoglobin 28.2 pg (26-34); Mean Corpuscular Volume 86.5 fl (80-100); Mean Platelet Volume 10.8 fl (7.4-10.4); Platelet Count Result 165 k/mm3 (150-375); Red Blood Count 4.22 M/mm3 (4.6-6.20); Red Cell Distribution Width 15.8 % (11.5-14.5); White Blood Count 7.1 K/mm3 (4.5-10.0)
[2023-02-13 11:16] LABS: Troponin I < 0.012 ng/mL (0.000-0.034)
== END 2023-02-13 12:00 | disposition home or self-care (01) ==
PROVIDERS: Emergency Provider Preventive Medicine Aerospace Medicine; PCP Student in an Organized Health Care Education/Training Program
DX: N12 Tubulo-interstitial nephritis, not specified as acute or chronic (principal); I10 Essential (primary) hypertension; Z98.84 Bariatric surgery status
CPT/HCPCS: 36415; 71045; 71260; 74177; 80053; 81003; 83605; 84484; 85027; 85380; 85610; 85730; 96365; 96374; 96375; 96376; 99284; A9270; J0696; J1170; J1885; Q9967

== ENCOUNTER 2023-06-05 12:09 | Emergency (ER) | payer MEDICARE, SELFPAY ==
--- NOTE | 2023-06-05 12:13 | ED.WOUNDLAC ---
HPI - Wound/Laceration General Chief Complaint: Wound/Laceration Stated Complaint: Right Hand Finger Laceration Time Seen by Provider: 06/05/23 12:12 Source: patient Mode of arrival: ambulatory Limitations: no limitations History of Present Illness HPI narrative: Jose is a 63-year-old male patient presenting to the clinic today with complaints of laceration to the right index finger. He reports this occurred last night around 6:00 when he was cutting a potato on a mandoline. Tetanus is up-to-date per patient Related Data Home Medications Medication Instructions Recorded Confirmed Alive Men's 50 Plus Multivit 1 dose BYMOUTH DAILY 09/26/21 06/05/23 divalproex 250 mg tablet,extended 125 mg PO TID 09/26/21 06/05/23 release 24 hr hydroxyzine HCl 50 mg tablet 50 mg PO QID 09/26/21 06/05/23 sertraline 100 mg tablet 100 mg PO DAILY 09/26/21 06/05/23 sertraline 50 mg tablet 50 mg PO DAILY 09/26/21 06/05/23 trazodone 100 mg tablet 100 mg PO HS 09/26/21 06/05/23 buspirone 10 mg tablet 10 mg PO QID 02/13/22 06/05/23 metoprolol succinate 25 mg 25 mg PO DAILY 02/13/22 12/19/22 tablet,extended release 24 hr Pain Pump 12/19/22 methocarbamol 750 mg tablet 750 mg PO BID 12/19/22 12/19/22 sucralfate 100 mg/mL oral 10 ml PO QID 12/19/22 12/19/22 suspension zonisamide 25 mg capsule 25 mg PO DAILY 12/19/22 12/19/22 Allergies Allergy/AdvReac Type Severity Reaction Status Date / Time No Known Allergies Allergy Verified 06/05/23 12:20 Review of Systems Review of Systems: Pertinent positives per HPI. Patient denies any fever, chills, rash, headache, visual changes, dizziness, cough, runny nose, sore throat, shortness of breath, chest pain, palpitations, nausea, vomiting, diarrhea, constipation, abdominal pain, or any urinary issues. PMFSH Past Medical History Medical History Chronic back pain History of anxiety History of depression History of sleep apnea Kidney stone Surgical History Surgical History History of appendectomy History of gastric bypass History of tonsillectomy Family History Family History Father Family history of emphysema, Onset Age: 40 Mother Bone marrow disease Sibling Heart disease Liver failure Other Family history of arthritis Social History Social History Smoking status: Former smoker Tobacco type: cigarettes Alcohol intake: never Substance use: current Substance use type: marijuana Other substance usage details: medicinal marijuana Last use: 02/12/22 Spiritual care concerns: No Comments At the time of my signature, I reviewed and agree with the nursing past medical, surgical, social, and family history. There is no relevant family history pertinent to the patient complaint. Exam Narrative: General: Well-developed, well nourished, in no apparent distress Head: Normocephalic, atraumatic. Cardio: Regular rate and rhythm, s1 and s2 normal, no murmur appreciated. Resp: Clear to auscultation bilaterally, no rhonchi, rales, wheezing or rubs. Integumentary: [place], warm, and dry, skin avulsion measuring 1 cm without nail involvement to the right palmar aspect of the index finger Course Course Emergency Course: Portions of this record may have been created with voice recognition software. Level of Care: Express Care Visit Vital Signs Vital signs: Vital signs reviewed MDM - Wound/Laceration MDM Narrative Medical decision making narrative: At the time of visit patient is resting comfortably on the exam table. I suspect patient has a skin avulsion due to a mandoline. Wound was cleansed with antiseptic soap and surgicel dressing was applied to clot bleeding. Tube gauze dressing was then applied. Bleeding i
[2023-06-05 12:20] VITALS: BP 124/67; PULSE 55; RESP 16; TEMP 36.8; O2SAT 100
[2023-06-05 12:23] VITALS: BP 124/67; PULSE 55; RESP 16; TEMP 36.8; O2SAT 100
== END 2023-06-05 12:42 | disposition home or self-care (01) ==
PROVIDERS: Emergency Provider Nurse Practitioner Family; PCP Student in an Organized Health Care Education/Training Program
DX: S61.200A Unspecified open wound of right index finger without damage to nail, initial encounter (principal); W27.4XXA Contact with kitchen utensil, initial encounter; Y93.G9 Activity, other involving cooking and grilling; Z87.891 Personal history of nicotine dependence; F41.9 Anxiety disorder, unspecified; F32.A Depression, unspecified
CPT/HCPCS: 99212; G0463

== ENCOUNTER 2023-11-30 11:01 | Emergency (ER) | payer OTHER, MEDICARE, SELFPAY ==
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
[2023-11-30 11:13] VITALS: BP 131/81; PULSE 58; RESP 18; TEMP 36.6; O2SAT 100
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
[2023-11-30] MEDS: KETOROLAC (*BKC) 60 MG/2 ML VIAL IM (14:03)
== END 2023-11-30 14:16 | disposition home or self-care (01) ==
PROVIDERS: Emergency Provider Nurse Practitioner Family; PCP Student in an Organized Health Care Education/Training Program
DX: S16.1XXA Strain of muscle, fascia and tendon at neck level, initial encounter (principal); G44.89 Other headache syndrome; S29.012A Strain of muscle and tendon of back wall of thorax, initial encounter; M47.814 Spondylosis without myelopathy or radiculopathy, thoracic region; M47.812 Spondylosis without myelopathy or radiculopathy, cervical region; F41.9 Anxiety disorder, unspecified; F32.A Depression, unspecified; Z87.442 Personal history of urinary calculi; V89.0XXA Person injured in unspecified motor-vehicle accident, nontraffic, initial encounter
CPT/HCPCS: 70450; 72125; 72128; 96372; 99284; J1885

== ENCOUNTER 2023-12-26 21:36 | Emergency (ER) | payer MEDICARE, SELFPAY ==
[2023-12-26] VITALS (12 sets, daily range): BP systolic 158–170; BP diastolic 87–103; PULSE 56; RESP 14; TEMP 36.8; O2SAT 98–100
--- NOTE | ~2023-12-26 | CT_ITS ---
EXAMINATION: CT lumbar spine wo con DATE: 12/26/2023 23:16 INDICATION: Low back pain. TECHNIQUE: Computed tomography (CT) of the lumbar spine was performed without intravenous contrast. T he dose-length product was 871.82 mGy-cm. Automated exposure control and iterative reconstruction delmar hnique were employed. COMPARISON: MRI dated 06/19/2021 FINDINGS: there are chronic superior endplate compression fractures of L1 and L2, unchanged from prio r MR allowing for differences of technique. No acute fracture or traumatic malalignment. There is a s chuyita leads ascending into the thoracic spine, superior tip not visualized. Normal lumbar alignment. There is mild multilevel uncinate and facet hypertrophy. IMPRESSION: 1. No acute abnormality of the lumbar spine. Reviewed, dictated and finalized at location B.
--- NOTE | 2023-12-26 21:41 | PC.NURSE ---
pt requesting to hold on triage assessment. Pt has to have bm at this time.
[2023-12-26 22:00] LABS: Appearance Urine Clear (Clear); Bacteria Urine None Seen /hpf; Bilirubin Urine 1+ (Negative); Blood Urine Negative (Negative); Color Urine Dark Yellow (Yellow); Glucose Urine UA Negative (Negative); Ketones Urine Trace mg/dL (Negative); Leukocyte Esterase Ur Negative LEU/UL (Negative); Nitrate Urine Negative (Negative); Non Pathogenic Casts 0-2; Protein Urine Trace mg/dL (Negative); RBC Urine 0-2 /hpf (0-2); Specific Grav Ur 1.025 (1.001-1.035); Squamous Epithelial Cell Urine None Seen /hpf (Few); WBC Urine 0-5 /hpf (0-3); pH Urine 8.5 (5.0-9.0)
[2023-12-26 22:09] LABS: Add Urine Microscopic? YES
--- NOTE | 2023-12-26 22:24 | ED.BACK ---
HPI - Back Pain/Injury General Chief Complaint: Back Pain/Injury <Royce Leroy APRN - Last Filed: 12/27/23 02:29> Stated Complaint: Lower Back Pain <Royce Leroy APRN - Last Filed: 12/27/23 02:29> Time Seen by Provider: 12/26/23 21:46 <Royce Leroy APRN - Last Filed: 12/27/23 02:29> Source: patient <Royce Leroy APRN - Last Filed: 12/27/23 02:29> Mode of arrival: ambulatory <Royce Leroy APRN - Last Filed: 12/27/23 02:29> Limitations: no limitations <Royce Leroy APRN - Last Filed: 12/27/23 02:29> History of Present Illness HPI Narrative: Jose is a 63-year-old male patient presenting to the ER today with complaints of low back pain that is radiating to his left side and he feels as though his left toes are cold. States that he has chronic back pain. Has a pain pump in place. States that they usually give him some Toradol and that helps alleviate his pain. Feels as though he has a lot of stress that is causing his back pain. Denies any saddle anesthesia or loss of bowel or bladder. <Royce Leroy APRN - Last Filed: 12/27/23 02:29> Related Data Home Medications: Home Medications Medication Instructions Recorded Confirmed Alive Men's 50 Plus Multivit 1 dose BYMOUTH DAILY 09/26/21 06/05/23 divalproex 250 mg tablet,extended 125 mg PO TID 09/26/21 06/05/23 release 24 hr hydroxyzine HCl 50 mg tablet 50 mg PO QID 09/26/21 06/05/23 sertraline 100 mg tablet 100 mg PO DAILY 09/26/21 06/05/23 sertraline 50 mg tablet 50 mg PO DAILY 09/26/21 06/05/23 trazodone 100 mg tablet 100 mg PO HS 09/26/21 06/05/23 buspirone 10 mg tablet 10 mg PO QID 02/13/22 06/05/23 metoprolol succinate 25 mg 25 mg PO DAILY 02/13/22 12/19/22 tablet,extended release 24 hr Pain Pump 12/19/22 methocarbamol 750 mg tablet 750 mg PO BID 12/19/22 12/19/22 sucralfate 100 mg/mL oral 10 ml PO QID 12/19/22 12/19/22 suspension zonisamide 25 mg capsule 25 mg PO DAILY 12/19/22 12/19/22 <Royce Leroy APRN - Last Filed: 12/27/23 02:29> Allergies/Adverse Reactions: Allergies Allergy/AdvReac Type Severity Reaction Status Date / Time No Known Allergies Allergy Verified 11/30/23 11:18 <Royce Leroy APRN - Last Filed: 12/27/23 02:29> Review of Systems Review of Systems: Pertinent positives per HPI. Patient denies any fever, chills, rash, headache, visual changes, dizziness, cough, runny nose, sore throat, shortness of breath, chest pain, palpitations, nausea, vomiting, diarrhea, constipation, abdominal pain, or any urinary issues. <Royce Leroy APRN - Last Filed: 12/27/23 02:29> [facility] Past Medical History Medical History: Medical History Chronic back pain History of anxiety History of depression History of sleep apnea Kidney stone <Royce Leroy APRN - Last Filed: 12/27/23 02:29> Surgical History Surgical History: Surgical History History of appendectomy History of gastric bypass History of tonsillectomy <Royce Leroy APRN - Last Filed: 12/27/23 02:29> Family History Family History: Family History Father Family history of emphysema, Onset Age: 40 Mother Bone marrow disease Sibling Heart disease Liver failure Other Family history of arthritis <Royce Leroy APRN - Last Filed: 12/27/23 02:29> Social History Social History: Social History Smoking status: Former smoker Tobacco type: cigarettes Alcohol intake: never Substance use: current Substance use type: marijuana Other substance usage details: medicinal marijuana Last use: 02/12/22 Spiritual care concerns: No <Royce Leroy APRN - Last Filed: 12/26
[2023-12-26] MEDS: KETOROLAC 30 MG/ML VIAL (*BKC) IM (22:41)
[2023-12-27] VITALS: O2SAT 99
[2023-12-27 00:15] VITALS: O2SAT 98
[2023-12-27 00:30] VITALS: O2SAT 100
[2023-12-27 00:45] VITALS: O2SAT 99
--- NOTE | 2023-12-27 01:38 | PC.NURSE ---
Pt continually asking for pain medication. EDP notified each time. Pt updated each time.
--- NOTE | 2023-12-27 01:43 | PC.NURSE ---
Pt continues to specifically request 1mg or 3mg of Dilaudid and or 125mcg of Fentanyl . Pt has asked for pain medication approximately 10 or more times. Pt has been updated each time.
[2023-12-27] MEDS: methocarbamoL 750 MG TABLET PO (01:52)
--- NOTE | 2023-12-27 03:02 | PC.NURSE ---
pt again asking for fentanyl or dilaudid. ERP updated.
--- NOTE | 2023-12-27 03:43 | PC.NURSE ---
pt daughter called the er and verbalized that the patient did not have his remote for his morphine pump today and missed multiple doses.
[2023-12-27] MEDS: HYDROmorphone HCL INJ (*CRX) 1 MG/ML SYR IM (04:18)
[2023-12-27 04:21] VITALS: PULSE 68; RESP 16; O2SAT 98
--- NOTE | 2023-12-27 04:22 | PC.NURSE ---
after dilaudid im shot given pt verbalized i did not get the normal castillo that I do. Normally when they give me the shot it goes right across from one arm to the other. Did you give it correctly, why am i not getting the castillo.
--- NOTE | 2023-12-27 04:23 | PC.NURSE ---
pt verbalized that He cant sit in a wheelchair until his ride arrives. He will continue to lay in that bed.
== END 2023-12-27 04:48 | disposition home or self-care (01) ==
PROVIDERS: Emergency Provider Emergency Medicine; PCP Student in an Organized Health Care Education/Training Program
DX: M54.50 Low back pain, unspecified (principal); F41.9 Anxiety disorder, unspecified; F32.A Depression, unspecified; G47.30 Sleep apnea, unspecified; Z87.442 Personal history of urinary calculi
CPT/HCPCS: 72131; 81001; 96372; 99284; A9270; J1170; J1885